=== PATIENT | female | born 1970 | race Caucasian/White ===

== ENCOUNTER 2021-02-18 13:57 | Outpatient (REF) | payer BC, SELFPAY ==
--- NOTE | ~2021-02-18 | XR_ITS ---
EXAMINATION: XR LUMBOSACRAL SPINE CLINICAL INFORMATION: Pain. Evaluate for fracture. COMPARISON: None TECHNIQUE: Three views of the lumbosacral spine. FINDINGS: Bone alignment is normal. No fracture or dislocation is seen. Disc spaces are normal. There is degenerative spondylosis at L2-L3. There is lower lumbar spine facet arthritis. XR/XR lumbar spine 2-3V IMPRESSION: No fracture or dislocation seen. Degenerative changes.
== END 2021-02-18 13:58 | disposition home or self-care (01) ==
LOC: HO.XRAY 13:57
PROVIDERS: PCP Internal Medicine Medical Oncology; Visit Provider Internal Medicine Medical Oncology
DX: R63.6 Underweight (principal); M54.5 Low back pain
CPT/HCPCS: 72100

== ENCOUNTER 2021-06-08 07:38 | Outpatient (REF) | payer BC, SELFPAY ==
[2021-06-08 10:07] LABS: MANUAL DIFF FLAG NO
[2021-06-08 10:14] LABS: Basophils Percent Auto 0.7 % (0-2); Eosinophils Absolute Auto 0.1 X10*3/uL (0.0-0.4); Eosinophils Percent Auto 4.1 % (0-4); Hematocrit 38.5 % (37-47); Hemoglobin 13.1 g/dl (12.0-16.0); Imm Gran Abs Auto 0.01 X10*3/uL (0.00-0.03); Imm Gran Pct Auto 0.4 % (0.0-0.4); Lymphocytes Absolute Auto 1.1 X10*3/uL (1.2-4.9); Lymphocytes Percent Auto 39.1 % (20-40); Mean Corpuscular Hemoglobin 32.3 pg (27.0-33.0); Mean Corpuscular Volume 94.8 fL (80-98); Mean Platelet Volume 10.4 fL (9.4-12.3); Monocytes Absolute Auto 0.3 X10*3/uL (0.1-1.2); Monocytes Percent Auto 12.5 % (2-11); Neutrophils Absolute Auto 1.2 X10*3/uL (2.0-8.3); Neutrophils Percent Auto 43.2 % (45-73); Platelet Count 251 X10*3/uL (160-400); Red Blood Count 4.06 X10*6/uL (4.20-5.50); Red Cell Distribution Width 12.1 % (11.0-16.0); White Blood Count 2.7 X10*3/uL (4.8-10.8)
[2021-06-08 11:23] LABS: Alanine Aminotransferase 10 U/L (0-31); Albumin Level 4.2 g/dL (3.5-5.0); Alkaline Phosphatase 46 U/L (39-117); Anion Gap 12 (12-20); Aspartate Amino Transferase 14 U/L (5-31); Bilirubin Total 0.8 mg/dL (0.0-1.0); Blood Urea Nitrogen 11 mg/dL (9-16); Calcium 9.4 mg/dL (8.4-10.2); Carbon Dioxide 26 mmol/L (22-29); Chloride 107 mmol/L (96-108); Cholesterol 155 mg/dL; Estimated Glomerular Filt Rate > 60; Glucose Fasting 82 mg/dL (60-99); HDL Cholesterol 54 mg/dL; LDL Cholesterol Calculated 93 mg/dl; Potassium 4.2 mmol/L (3.3-5.1); Sodium 141 mmol/L (135-145); Total Protein 6.4 g/dL (6.5-8.0); Triglycerides 40 mg/dL
== END 2021-06-08 07:39 | disposition home or self-care (01) ==
LOC: HO.10HDL 07:38
PROVIDERS: PCP Internal Medicine Medical Oncology; Visit Provider Internal Medicine Medical Oncology
DX: Z00.00 Encounter for general adult medical examination without abnormal findings (principal)
CPT/HCPCS: 36415; 80053; 80061; 85025

== ENCOUNTER 2021-08-08 15:14 | Outpatient (REF) | payer BC, SELFPAY ==
[2021-08-08 16:48] LABS: MANUAL DIFF FLAG NO
[2021-08-08 16:53] LABS: Basophils Percent Auto 0.5 % (0-2); Hematocrit 39.5 % (37-47); Hemoglobin 13.4 g/dl (12.0-16.0); Lymphocytes Absolute Auto 1.3 X10*3/uL (1.2-4.9); Lymphocytes Percent Auto 33.5 % (20-40); Mean Corpuscular HGB Conc 33.9 g/dl (31.0-35.0); Mean Corpuscular Hemoglobin 31.2 pg (27.0-33.0); Mean Corpuscular Volume 91.9 fL (80-98); Mean Platelet Volume 10.3 fL (9.4-12.3); Monocytes Absolute Auto 0.4 X10*3/uL (0.1-1.2); Monocytes Percent Auto 11.5 % (2-11); Neutrophils Percent Auto 53.5 % (45-73); Platelet Count 243 X10*3/uL (160-400); Red Cell Distribution Width 11.6 % (11.0-16.0); White Blood Count 3.8 X10*3/uL (4.8-10.8)
[2021-08-10 18:16] LABS: HPV mRNA E6/E7 rflx Not Detected (Not Detected)
== END 2021-08-08 15:15 | disposition home or self-care (01) ==
LOC: HO.LAB 15:14
PROVIDERS: Obstetrics & Gynecology; PCP Internal Medicine Medical Oncology; Visit Provider Internal Medicine Medical Oncology
DX: Z01.419 Encounter for gynecological examination (general) (routine) without abnormal findings (principal); K52.9 Noninfective gastroenteritis and colitis, unspecified; Z88.1 Allergy status to other antibiotic agents; Z88.0 Allergy status to penicillin; Z88.2 Allergy status to sulfonamides
CPT/HCPCS: 36415; 85025; 87624; 88142

== ENCOUNTER → 2022-01-12 15:33 | Outpatient (BNVA) | payer BC, SELFPAY | PROVIDERS: PCP Internal Medicine Medical Oncology; Visit Provider Nurse Practitioner | DX: Z12.11 Encounter for screening for malignant neoplasm of colon (principal) ==

== ENCOUNTER 2022-08-17 07:46 | Outpatient (REF) | payer BC, SELFPAY ==
[2022-08-17 10:48] LABS: MANUAL DIFF FLAG NO
[2022-08-17 11:00] LABS: Basophils Percent Auto 0.5 % (0-2); Eosinophils Absolute Auto 0.1 X10*3/uL (0.0-0.4); Eosinophils Percent Auto 2.9 % (0-4); Hematocrit 41.7 % (37.0-47.0); Hemoglobin 13.8 g/dl (12.0-16.0); Imm Gran Abs Auto 0.01 X10*3/uL (0.00-0.03); Imm Gran Pct Auto 0.3 % (0.0-0.4); Lymphocytes Absolute Auto 1.1 X10*3/uL (1.2-4.9); Lymphocytes Percent Auto 30.2 % (20-40); Mean Corpuscular HGB Conc 33.1 g/dl (31.0-35.0); Mean Corpuscular Hemoglobin 30.7 pg (27.0-33.0); Mean Corpuscular Volume 92.7 fL (80.0-98.0); Mean Platelet Volume 10.3 fL (9.4-12.3); Monocytes Absolute Auto 0.5 X10*3/uL (0.1-1.2); Monocytes Percent Auto 12.6 % (2-11); Neutrophils Percent Auto 53.5 % (45-73); Platelet Count 251 X10*3/uL (160-400); Red Cell Distribution Width 11.9 % (11.0-16.0); White Blood Count 3.7 X10*3/uL (4.8-10.8)
[2022-08-17 11:13] LABS: Alanine Aminotransferase 14 U/L (0-31); Albumin Level 4.4 g/dL (3.5-5.0); Alkaline Phosphatase 52 U/L (39-117); Anion Gap 14 (12-20); Aspartate Amino Transferase 17 U/L (5-31); Bilirubin Total 0.8 mg/dL (0.0-1.0); Blood Urea Nitrogen 16 mg/dL (9-16); Calcium 9.2 mg/dL (8.4-10.2); Carbon Dioxide 26 mmol/L (22-29); Chloride 104 mmol/L (96-108); Cholesterol 163 mg/dL; Estimated Glomerular Filt Rate > 60; Glucose Fasting 86 mg/dL (60-99); HDL Cholesterol 64 mg/dL; LDL Cholesterol Calculated 90 mg/dl; Sodium 140 mmol/L (135-145); Total Protein 6.9 g/dL (6.5-8.0); Triglycerides 46 mg/dL
== END 2022-08-17 07:47 | disposition home or self-care (01) ==
LOC: HO.10HDL 07:46
PROVIDERS: Visit Provider Internal Medicine Medical Oncology
DX: Z00.00 Encounter for general adult medical examination without abnormal findings (principal)
CPT/HCPCS: 36415; 80053; 80061; 85025

== ENCOUNTER → 2023-04-09 09:23 | Outpatient (BNVA) | payer BC, SELFPAY | PROVIDERS: PCP Internal Medicine Medical Oncology; Visit Provider Nurse Practitioner Family ==

== ENCOUNTER 2023-08-22 08:09 | Outpatient (REF) | payer BC, SELFPAY ==
[2023-08-22 10:17] LABS: MANUAL DIFF FLAG NO
[2023-08-22 10:26] LABS: Basophils Percent Auto 0.5 % (0-2); Eosinophils Absolute Auto 0.1 X10*3/uL (0.0-0.4); Eosinophils Percent Auto 1.9 % (0-4); Hematocrit 41.7 % (37.0-47.0); Hemoglobin 13.8 g/dl (12.0-16.0); Imm Gran Abs Auto 0.01 X10*3/uL (0.00-0.03); Imm Gran Pct Auto 0.3 % (0.0-0.4); Lymphocytes Absolute Auto 0.9 X10*3/uL (1.2-4.9); Lymphocytes Percent Auto 25.6 % (20-40); Mean Corpuscular HGB Conc 33.1 g/dl (31.0-35.0); Mean Corpuscular Hemoglobin 30.9 pg (27.0-33.0); Mean Corpuscular Volume 93.3 fL (80.0-98.0); Mean Platelet Volume 10.2 fL (9.4-12.3); Monocytes Absolute Auto 0.4 X10*3/uL (0.1-1.2); Monocytes Percent Auto 10.6 % (2-11); Neutrophils Absolute Auto 2.2 x10*3/uL (2.0-8.3); Neutrophils Percent Auto 61.1 % (45-73); Platelet Count 236 X10*3/uL (160-400); Red Blood Count 4.47 X10*6/uL (4.20-5.50); White Blood Count 3.7 X10*3/uL (4.8-10.8)
[2023-08-22 10:52] LABS: Alanine Aminotransferase 12 U/L (0-31); Albumin Level 4.1 g/dL (3.5-5.0); Alkaline Phosphatase 50 U/L (39-117); Anion Gap 10 (12-20); Aspartate Amino Transferase 17 U/L (5-31); Bilirubin Total 0.5 mg/dL (0.0-1.0); Blood Urea Nitrogen 12 mg/dL (9-16); Carbon Dioxide 27 mmol/L (22-29); Chloride 107 mmol/L (96-108); Cholesterol 156 mg/dL (<200); Estimated Glomerular Filt Rate > 60; Glucose Fasting 89 mg/dL (60-99); HDL Cholesterol 69 mg/dL (>40); LDL Cholesterol Calculated 81 mg/dL (<100); Sodium 140 mmol/L (135-145); Total Protein 6.7 g/dL (6.5-8.0); Triglycerides 32 mg/dL (<150)
[2023-08-22 11:08] LABS: Vitamin D 25-OH Total 92.9 ng/mL (>30)
== END 2023-08-22 08:10 | disposition home or self-care (01) ==
LOC: HO.10HDL 08:09
PROVIDERS: Visit Provider Internal Medicine Medical Oncology
DX: E55.9 Vitamin D deficiency, unspecified (principal); K52.9 Noninfective gastroenteritis and colitis, unspecified; R63.6 Underweight; E78.5 Hyperlipidemia, unspecified
CPT/HCPCS: 36415; 80053; 80061; 82306; 85025

== ENCOUNTER 2023-11-01 09:53 | Outpatient (AMB) | payer BC, SELFPAY ==
--- NOTE | 2023-11-01 10:10 | A.OFFVIS_ITS ---
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 Patient reports pain started early June after doing at home exercises that she was instructed by PT for her back. She has had no improvement in her pain. States pain is in her bicep area that fluctuated in intensity. Her pain is 80% of the time that will get worse with activities. No other tx. Allergies amoxicillin Allergy (Intermediate, Verified 11/01/23 10:20) rash azithromycin Allergy (Intermediate, Verified 11/01/23 10:20) rash penicillin V Allergy (Intermediate, Verified 11/01/23 10:20) Rash Penicillins [PENICILLINS] Allergy (Intermediate, Verified 11/01/23 10:20) rash Sulfa (Sulfonamide Antibiotics) [SULFA (SULFONAMIDE ANTIBIOTICS)] Allergy (Unknown, Verified 11/01/23 10:20) RASH MYCINS Adverse Reaction (Unknown, Uncoded 11/01/23 10:20) RASH Medication List - Last Reconciled 11/01/23 by Savanah Dunn PA-C albuterol sulfate 90 mcg/actuation 2 puffs inhalation Q6H PRN calcium carbonate 500 mg PO BID cholecalciferol (vitamin D3) 25 mcg PO DAILY clobetasol 0.05% grams topical BID cyclobenzaprine 5 mg PO BEDTIME PRN 30 days ibuprofen 600 mg PO Q8H PRN peg 3350-electrolytes 240-22.72-6.72 -5.84 gram (Gavilyte-C) 240 mL PO Q10M 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 She currently states she has no improvement in her pain and c/o pain in her bicep region which fluctuates in intensity. Her pain is aggravated with activities about 80% of the time. She also reports pain with overhead reaching as well as reaching her sides to pick the remote. She finds relief with Advil most of the time. She has not had any treatment in the past. REPLACED BY [facility] Medical History Asthma Colitis Herniated disc, cervical Surgical History H/O colonoscopy S/P tonsillectomy and adenoidectomy History of endometrial ablation Family History Mother Breast cancer HTN (hypertension) Stroke COPD (chronic obstructive pulmonary disease) Emphysema lung Father Diabetes Emphysema lung HTN (hypertension) Maternal Aunt Breast cancer Social History (Updated 11/01/23 @ 10:12 by SHALONDA King) Household Members: Spouse Housing: House Alcohol intake: current Patient Tobacco Use Status: Never used Tobacco Current occupational status: employed 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, right hand dominant Sexual orientation: Straight/Heterosexual Gender identity: Female Female Reproductive History Menstrual Age of Menarche: 12 Review of Systems Const All systems reviewed & are unremarkable except as noted in HPI and below Physical Exam Vital Signs: BMI result Body Mass Index 18.9 Const General: cooperative, healthy appearing, comfortable, no acute distress, well developed and alert Orientation/consciousness: patient oriented x3 HEENT Head: Yes normal to inspection, Yes normocephalic and Yes atraumatic Eyes General: appearance normal, both eyes and all related structures Resp Effort & Inspection: normal respiratory effort and able to speak in complete sentences Cardio Rate: regular rate Peripheral pulses: Peripheral pulses 2+ throughout GI Palpation (GI): Soft to palpation Skin Lesions: no lesions Rashes: no rashes Neuro General: patient oriented x3 Extrem Other: Right shoulder normal to inspection. Tenderness over the bicipital groove and along the deltoid region of the shoulder. Forward flexion to 175, external rotation to 90, internal rotation to S1. 5/5 RTC strength. Positive O'Briens and cross body abduction. NVI. Results Reviewed Results Reviewed: Xrays were obtained in the office today and personally reviewed by me of the right shoulder show mild ac joint oa Assessment & Plan Assessment & Plan (1) Biceps tendonitis on right: Code(s): M75.21 - Bicipital tendinitis, right shoulder (2) Osteoarthritis of right acromioclavicular joint: Code(s): M19.011 - Primary osteoarthritis, right shoulder Plan We discussed options which include PT, NSAIDs and injections. The patient will defer on the injection today and proceed with PT and NSAIDs. If she continues to have discomfort, she will contact us in 6-8 weeks to discuss further imaging studies such as an MRI. Orders: Orders XR shoulder RT min 2V Today M25.511 - Pain in right shoulder PT Evaluation and Treatment Today M19.011 - Primary osteoarthritis, right shoulder, M75.21 - Bicipital tendinitis, right shoulder Patient Instructions: Scribed for Savanah Dunn PA-C, by Jdaen Omalley medical office asst, on 11/01/2023 at 10:00 AM EST. I, Savanah Dunn PA-C, have personally reviewed and agree with the information entered by the scribe. Coding Level of Care Code New Pt Level 3 (02694) Diagnoses Biceps tendonitis on right M75.21 Osteoarthritis of right acromioclavicular joint M19.011
[2023-11-01 10:17] VITALS: BMI 18.9
== END 2023-11-01 10:40 | disposition home or self-care (01) ==
PROVIDERS: PCP Internal Medicine Medical Oncology; Visit Provider Physician Assistant
DX: M75.21 Bicipital tendinitis, right shoulder (principal); M19.011 Primary osteoarthritis, right shoulder
CPT/HCPCS: 99203

== ENCOUNTER 2023-11-01 12:35 | Outpatient (REF) | payer BC, SELFPAY ==
--- NOTE | ~2023-11-01 | XR_ITS ---
EXAMINATION: XR SHOULDER, RIGHT CLINICAL INFORMATION: Pain in right shoulder COMPARISON: None available. TECHNIQUE: Three views of the right shoulder. FINDINGS: The humeral head is well positioned over the intact glenoid. Glenohumeral joint space is normal: no arthritic deformity, fracture or subluxation. Acromioclavicular joint is normal. The subacromial space is normal. There are no osteophytes projecting from the undersurface of the acromioclavicular joint. No hook-shaped acromion, os acromiale or subacromial enthesophyte. No osseous findings that would predispose to a subacromial impingement disorder. No calcium deposition within rotator cuff tendons. The visualized portion of the right lung is normal. XR/XR shoulder RT min 2V IMPRESSION: Normal right shoulder.
== END 2023-11-01 12:36 | disposition home or self-care (01) ==
LOC: HO.HOSX 12:35
PROVIDERS: Visit Provider Physician Assistant
DX: M75.21 Bicipital tendinitis, right shoulder (principal); M19.011 Primary osteoarthritis, right shoulder; Z79.899 Other long term (current) drug therapy
CPT/HCPCS: 73030

== ENCOUNTER 2024-08-27 07:40 | Outpatient (REF) | payer BC, SELFPAY ==
[2024-08-27 11:10] LABS: MANUAL DIFF FLAG NO
[2024-08-27 11:21] LABS: Basophils Percent Auto 0.5 % (0-2); Eosinophils Absolute Auto 0.1 X10*3/uL (0.0-0.4); Eosinophils Percent Auto 1.6 % (0-4); Hematocrit 42.8 % (37.0-47.0); Hemoglobin 14.3 g/dl (12.0-16.0); Imm Gran Abs Auto 0.01 X10*3/uL (0.00-0.03); Imm Gran Pct Auto 0.2 % (0.0-0.4); Lymphocytes Absolute Auto 1.1 X10*3/uL (1.2-4.9); Lymphocytes Percent Auto 25.2 % (20-40); Mean Corpuscular HGB Conc 33.4 g/dl (31.0-35.0); Mean Corpuscular Hemoglobin 30.9 pg (27.0-33.0); Mean Corpuscular Volume 92.4 fL (80.0-98.0); Mean Platelet Volume 9.8 fL (9.4-12.3); Monocytes Absolute Auto 0.5 X10*3/uL (0.1-1.2); Monocytes Percent Auto 11.2 % (2-11); Neutrophils Absolute Auto 2.7 x10*3/uL (2.0-8.3); Neutrophils Percent Auto 61.3 % (45-73); Platelet Count 248 X10*3/uL (160-400); Red Blood Count 4.63 X10*6/uL (4.20-5.50); Red Cell Distribution Width 11.9 % (11.0-16.0); White Blood Count 4.4 X10*3/uL (4.8-10.8)
[2024-08-27 12:26] LABS: Alanine Aminotransferase 23 U/L (0-31); Albumin Level 4.2 g/dL (3.5-5.0); Alkaline Phosphatase 63 U/L (39-117); Anion Gap 13 (12-20); Aspartate Amino Transferase 23 U/L (5-31); Bilirubin Total 0.5 mg/dL (0.0-1.0); Blood Urea Nitrogen 14 mg/dL (9-16); Carbon Dioxide 25 mmol/L (22-29); Chloride 107 mmol/L (96-108); Cholesterol 178 mg/dL (<200); Estimated Glomerular Filt Rate > 60; Glucose Fasting 94 mg/dL (60-99); HDL Cholesterol 74 mg/dL (>40); LDL Cholesterol Calculated 95 mg/dL (<100); Sodium 141 mmol/L (135-145); Total Protein 6.9 g/dL (6.5-8.0); Triglycerides 49 mg/dL (<150)
== END 2024-08-27 07:41 | disposition home or self-care (01) ==
LOC: HO.10HDL 07:40
PROVIDERS: Visit Provider Internal Medicine Medical Oncology
DX: Z13.6 Encounter for screening for cardiovascular disorders (principal); E55.9 Vitamin D deficiency, unspecified; R63.6 Underweight
CPT/HCPCS: 36415; 80053; 80061; 85025

== ENCOUNTER 2025-09-03 07:58 | Outpatient (REF) | payer BC, SELFPAY ==
--- OUTSIDE RECORDS SUMMARY | 2024-03-19 04:10 | XMS_ITS ---
Author Organization Reuben Cat III, MD Address [address] [place] [address] [place] [address] Care Team Providers Care Supervisor Fish Processing Name Role Phone Dr. Reuben Cat III Primary Care Provider REASON FOR VISIT pt want RX Clobetasol propionate Medications Medication SIG (Take, Route, Frequency, Duration) Notes Start Date End Date Status Clobetasol Propionate 0.05 % 1 application Externally Twice a day for 30 days 02/17/2022 10/15/2024 Active Social History Sex Assigned At : Social History Observation Description Sex Assigned At Female Encounters Encounter Location Date Provider Diagnosis Reuben Cat III, MD [address] [place] [address] [place] [address] 03/19/2024 Reuben Cat Plan Of Treatment Medication Medication Name Sig Start Date Stop Date Notes Clobetasol Propionate 0.05 % 1 applicati on Externally Twice a day for 30 days 02/17/2022 10/15/2024 Next Appt Details Provider Name:Reuben Cat , 09/09/2025 09:30:00 AM, [address] [place] [address] [place], [address], Progress Notes * ANJELFloraDOB:1970 (54 yo F)Acc No.[id number]:03/19/2024 Patient: Anjelica Hampton :1970 A ge:54 Y S ex:Female Address:[address] [place] [address], [address] * Refills Refill Clobetasol Propionate Cream, 0.05 %, Externally, 60 Gram, 1 application, Twice a day, 30 days, Refills=6 * true * Date: Generated for Johnny leone/Dustin/Jamie on: 11/03/2024 08:04 AM EST
--- OUTSIDE RECORDS SUMMARY | 2024-08-28 01:51 | XMS_ITS ---
Author Organization Reuben Cat III, MD Address [address] [place] [facility] [place] [address] Care Team Providers Care Video Photographer Name Role Phone Dr. Reuben Cat III Primary Care Provider REASON FOR VISIT Update Demographics - Personal Info Social History Sex Assigned At : Social History Observation Description Sex Assigned At Female Encounters Encounter Location Date Provider Diagnosis Reuben Cat III, MD [address] [place] [address] [place] [address] 08/28/2024 Reuben Cat Plan Of Treatment Next Appt Details Provider Name:Reuben Cat , 09/09/2025 09:30:00 AM, [address] [place] [address] [place], [address], Progress Notes * Anjelica GUAMANDOB:1970 (54 yo F)Acc No.[id number]:08/28/2024 Patient: Anjelica JEAN BAPTISTE :1970 A ge:54 Y S ex:Female Address:[address] [place] [address], [address] * true * Date: Generated for Johnny leone/Fairag/eTransmitting on: 11/03/2024 08:04 AM EST
--- OUTSIDE RECORDS SUMMARY | 2024-09-08 04:30 | XMS_ITS ---
Author Organization Reuben Cat III, MD Address [address] [address] Care Team Providers Care Web Ui Developer Name Role Phone Dr. Reuben Cat III Primary Care Provider [phone] Allergies Allergen (clinical drug ingredient) Drug/Non Drug [...] Problem Status W/U Status Risk Notes Problem 254260844 Lumbar radiculopathy (M54.16) Active confirmed Her back pain has been minimal lately. Vital Signs Temperature 97.9 degrees Fahrenheit 09/08/20 24 Blood pressure systolic 128 mm Hg 09/08/20 24 Blood pressure diastolic 69 mm Hg 024 Heart Rate 75 /min 09/08/2024 Height 67.5 in 09/08/2024 Weight 120 lbs 09/08/2024 BMI 18.52 kg/m2 09/08/2024 Encounters Encounter Location Date Provider Diagnosis Reuben Cat III, MD [address] [place] [address] [place] [address] 09/08/2024 Reuben Cat Immunization not carried out [...] Inhalation every 4 hrs prn wheezing 06/18/2020 Pending Test Test Name Order Date PROFILE, FASTING (COMPREHENSIVE METABOLI C) 09/08/2024 CBC WITH AUTO DIFF 09/08/2024 Lipid Panel 09/08/2024 Next Appt Details Follow Up: 1 Year, In a year or sooner if any concerns arise, Reason: OV, Annual Exam, Routine check-up Provider Name:Reuben Cat , 09/09/2025 09:30:00 AM, [address] [place] [address], [address], Progress Notes * Anjelica GUAMANDOB:1970 (54 yo F)Acc No.[id number]:09/08/2024 Progress Notes Patient: Anjelica JEAN BAPTISTE Provider: Jessy Cat MD :1970 A ge:54 Y S ex:Female Date:09/08/2024 Address:[address] [place], [place] [id number] Subjective: * Chief Complaints: * A nnual exam * HPI: D epression Screening: PHQ-9 L ittle interest or pleasure in doing things?Not at all F eeling down, depressed, or hopeless N ot at all T rouble falling or staying asleep, or sleeping too much S ever F eeling tired or having little energy [...] fracture right humerus, childhood fracture toe, childhood [id number] repair laceration right wrist, Dr. Bojorquez, orthopedist [...] (0 point) P oints 1 I nterpretation Hermelinda Frankel iscellaneous: D omestic violence: no. Living with: spouse. D rug/Alcohol: A MARIS-C (Standard) D id you have a drink containing alcohol in the past year? N o P oints 0 I nterpretation N billie S he was born in [facility]. She has 2 children and was remarried to [place] in February 2016.. 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 She does not smoke or drink and has not traveled outside of the country since 2008 when she was in [place]. Not mentioned in the transcript. * Medications: [...] 97.9, [id number]-k.[id number]. * P ast Orders: Lab:[facility] * Collection Date 08/27/2024 08/22/2023 08/17/2022 Collection [...] Yes * Procedure Codes: 8 1002 URINE-NO [id number] FLU IMM NO ORD/ADMIN DOC FEDERICO * [...] Jessy Cat MD Date: 11/08/2023 Generated for Johnny leone/Dustin/eTransmitting on: 11/03/2024 08:04 AM EST History and Physical Notes * HPI [...] days?: No Have you travelled internationally in e last 10 days?: No Have you been [...]
--- OUTSIDE RECORDS SUMMARY | 2025-09-03 08:04 | XMS_ITS | Patient Health Record ---
Author Organization Reuben Cat III, MD Address [address] [place] [address] [address] [place] [address] Care Team Providers Care Tool Setter Name Role Phone Dr. Reuben Cat III Primary Care Provider Allergies Allergen (clinical drug ingredient) Drug/Non Drug [...] 1.3 BLD Positive Negative - Menstrating Yes Reason For Referral No Information Medications Medication SIG (Take, Route, Frequency, Duration) Notes Start Date End Date Status Acidophilus Active Vitamin D Active Calcium Active Beet Root Active Clobetasol Propionate 0.05 % 1 application Externally Twice a day 02/17/2022 Active ProAir HFA 108 (90 Base) MCG/ACT 2 puffs as needed Inhalation every 4 hrs prn wheezing 06/18/2020 Active Immunizations Vaccine Route Administration Date Status Comme nts Tetanus and Diphtheria Toxoi ds Adsorbed Unknown 05/17/2004 Administered Decline: Influenza Unknown 09/03/2023 Others Social History Tobacco Use: Social History Observation [...] Problem Status W/U Status Risk Notes Problem 010246690 Asthma (J45.909) Active confirmed She has had very little trouble with asthma the summer and is not wheezing at this time. No change her therapy as needed. Problem 386532191 Underweight (R63.6) Active confirmed Her body mass index is 18. Her weight is stable and her nutritional status is good. She seems healthy and well. Problem 276040572 Lumbar radiculopathy (M54.16) Active confirmed Her back pain has been minimal lately. 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 Her vitamin D level was 92. She admitted to taking 3000 mg of vitamin D daily. Her calcium is normal. I have reduced her vitamin D intake to 2000 units. Problem Intervertebral disc disorder (33733684) Unspecified thoracic, thoracolumbar and lumbosacral intervertebral disc disorder (M51.9) Active confirmed She continues to have mild back pain from last month. 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 Yet, and we are in pollen season. We reviewed her strategies for controlling allergies to environmental stimuli. 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 Problem 347922017 Acute right-sided low back pain with right-sided sciatica (M54.41) Active confirmed Her back pain has resolved. She has intermittent twinges and is conscientious about avoiding heavy lifting and undue exercise. Problem 253519484 Abnormal mammogram of left breast (R92.8) Active confirmed She is going to try to find the details of her family's breast cancer cases particularly the age of onset and the location of the pathology reports. I will order an MRI of the breast and we will discuss these results. If she qualifies for genetic testing it will be ordered. Vital Signs Heart Rate 75 /min 09/08/2024 Temperature 97.9 degrees Fahrenheit 09/08/2024 Blood pressure diastolic 69 mm Hg 09/08/2024 Height 67.5 in 09/08/2024 Blood pressure systolic 128 mm Hg 09/08/2024 Weight 120 lbs 09/08/2024 BMI 18.52 kg/m2 09/08/2024 Encounters Encounter Location Date Provider Diagnosis Reuben Cat III, MD [address] [place] [address] [place] [address] 09/08/2024 Reuben Cat Immunization not carried out because of patient refusal Z28.21 ; Lumbar radiculopathy M54.16 ; Underweight R63.6 ; Asthma J45.909 and Vitamin D deficiency, unspecified E55.9 Assessments Encounter Date Diagnosis (ICD Code) Assessment Notes Treat ment Notes Treatment Clinical Notes 09/08/2024 Lumbar radiculopathy (ICD-10 - M54.16) Her back pain has been minimal lately. 09/08/2024 Immunization not carried out because of patient refusal (ICD-10 - Z28.21) She declined an annual influenza vaccine. 09/08/2024 Underweight (ICD-10 - R63.6) Her body [...] intake to 2000 units. Plan Of Treatment Pending Test Test Name Order Date PROFILE, FASTING (COMPREHENSIVE METABOLI C) 07/16/2023 PROFILE, FASTING (COMPREHENSIVE METABOLI C) 12/17/2019 PROFILE, FASTING (COMPREHENSIVE METABOLI C) 09/08/2024 PROFILE, FASTING (COMPREHENSIVE METABOLI C) 04/03/2022 PROFILE, FASTING (COMPREHENSIVE METABOLI C) 09/03/2023 PROFILE, FASTING (COMPREHENSIVE METABOLI C) 06/18/2020 LIPID PANEL 06/18/2020 LIPID PANEL 07/16/2023 LIPID PANEL 12/17/2019 LIPID PANEL 04/03/2022 CBC w DIFF 04/03/2022 CBC w DIFF 06/18/2020 CBC w DIFF 06/21/2021 CBC w DIFF 07/16/2023 CBC w DIFF 12/17/2019 MRI BREAST BILATERAL 06/14/2017 MRI LUMBAR SPINE NO CONTRAST 03/14/2023 MAMMOGRAM DIGITAL BILATERAL DIAGNO 05/14 MAMMOGRAM DIGITAL BILATERAL SCREEN 04/07 MAMMOGRAM DIGITAL UNILATERAL JON LT 04/21 VITAMIN D 25-OH TOTAL 09/03/2023 VITAMIN D 25-OH TOTAL 07/16/2023 CBC WITH AUTO DIFF 09/03/2023 CBC WITH AUTO DIFF 09/08/2024 Lipid Panel 09/08/2024 Lipid Panel 09/03/2023 Next Appt Details Provider Name:Reuben House Stephania , 09/09/2025 09:30:00 AM, [address] [place] [address] [place], [place], [address], Insurance Providers Payer Name Payer Address Payer Phone Subscriber Number Group Number Insured Name Patient Relationship to Insured Coverage Start Date Coverage End Date [facility] [address] [place], [place] [id number] Anjelica Guaman Self - patient is the insured Medical (General) History Medical History History ICD Code laceration right wrist last mammogram 03/05/2014 asthma onset age 35 colitis, [place], [place] [facility] [place] tetanus 06/2014 high risk HPV Degenerative disc disease lumbar spine Lumbar radiculopathy Not mentioned in the transcript Surgical History Surgery Date(Month/Year) T&A childhood fracture right humerus, childhood fracture toe, childhood [id number] repair laceration right wrist, Dr. Bojorquez , orthopedist 06/2014 colonoscopy 2007 No history Hospitalization History Reason Date(Month/Year) No history
[2025-09-03 08:21] LABS: MANUAL DIFF FLAG NO
[2025-09-03 08:25] LABS: Hematocrit 42.1 % (37.0-47.0); Hemoglobin 14.1 g/dl (12.0-16.0); Imm Gran Abs Auto 0.01 X10*3/uL (0.00-0.03); Imm Gran Pct Auto 0.3 % (0.0-0.4); Lymphocytes Absolute Auto 1.2 X10*3/uL (1.2-4.9); Mean Corpuscular HGB Conc 33.5 g/dl (31.0-35.0); Mean Corpuscular Hemoglobin 31.5 pg (27.0-33.0); Mean Corpuscular Volume 94.0 fL (80.0-98.0); NRBC Abs Auto 0.000 X10*3/uL (0.0-0.012); NRBC Pct Auto 0.0 /100WBC (0.0-0.2); Platelet Count 226 X10*3/uL (160-400); Red Blood Count 4.48 X10*6/uL (4.20-5.50); White Blood Count 3.2 X10*3/uL (4.8-10.8)
[2025-09-03 12:15] LABS: Alanine Aminotransferase 18 U/L (0-31); Albumin Level 4.5 g/dL (3.5-5.0); Alkaline Phosphatase 60 U/L (39-117); Anion Gap 10 (12-20); Aspartate Amino Transferase 22 U/L (5-31); Blood Urea Nitrogen 13 mg/dL (9-16); Calcium 8.6 mg/dL (8.4-10.2); Carbon Dioxide 29 mmol/L (22-29); Chloride 107 mmol/L (96-108); Cholesterol 172 mg/dL (<200); Estimated Glomerular Filt Rate > 60; HDL Cholesterol 70 mg/dL (>40); Potassium 3.7 mmol/L (3.3-5.1); Sodium 142 mmol/L (135-145); Total Protein 6.9 g/dL (6.5-8.0); Triglycerides 44 mg/dL (<150)
== END 2025-09-03 07:59 | disposition home or self-care (01) ==
LOC: HO.10HDL 07:58
PROVIDERS: Visit Provider Internal Medicine Medical Oncology
DX: Z00.00 Encounter for general adult medical examination without abnormal findings (principal); Z13.6 Encounter for screening for cardiovascular disorders
CPT/HCPCS: 36415; 80053; 80061; 85025

== ENCOUNTER 2025-10-13 17:20 | Outpatient (REF) | payer BC, SELFPAY ==
--- OUTSIDE RECORDS SUMMARY | 2024-08-28 01:51 | XMS_ITS ---
Author Organization Reuben Cat III, MD Address [address] [place] [address] Care Team Providers Care Meals On Wheels Driver Name Role Phone Dr. Reuben Cat III Primary Care Provider [phone] REASON FOR VISIT Update Demographics - Personal Info Social History Sex Assigned At : Social History Observation Description Sex Assigned At Female Encounters Encounter Location Date Provider Diagnosis Reuben Cat III, MD [address] [place] [address] [place] [address] 08/28/2024 Reuben Cat Plan Of Treatment Next Appt Details Provider Name:Reuben Cat , 10/19/2025 02:45:00 PM, [address] [place] [address] [place], [address], Provider Name:Reuben Cat , 09/10/2026 09:30:00 AM, [address] [place] [address] [place], [address], Progress Notes * ANJELAnjelicaDOB:1970 (54 yo F)Acc No.[id number]:08/28/2024 Patient: Anjelica JEAN BAPTISTE :1970 A ge:54 Y S ex:Female Address:[address] [place] [address], [address] * true * Date: Generated for Printi ng/Faxing/eTransmitting on: 1 12/14/2024 05:22 PM EST
--- OUTSIDE RECORDS SUMMARY | 2024-09-08 04:30 | XMS_ITS ---
Author Organization Reuben Cat III, MD Address [address] [place] [address] Care Team Providers Care Youth Coordinator Name Role Phone Dr. Reuben Cat III Primary Care Provider [phone] Allergies Allergen (clinical drug ingredient) Drug/Non Drug Allergy documented on EMR Reaction Allergy Type Onset Date Status Penicillin Unknown Drug Allergy Active Cat dander Cat Dander Unknown Allergy Active vancomycin Vancomycin HCl Unknown Drug Allergy A ctive Seasonale Unknown Drug Allergy Active erythromycin Erythromycin Unknown Drug Allergy A ctive amoxicillin Amoxicillin Unknown Drug Allergy Act [place] sulfacetamide Sulfacetamide Unknown Drug Allergy Active Results Component Value Reference Range Notes URINE DIP STICK Reviewed date:09/08/2024 09:56:16 AM Interpretation: Performing Lab: Notes/Report: SG 1.030 1.005 - 1.025 pH 5.0 5.0 - 9.0 SARAH Negative Negative - NIT Negative Negative - PRO 15 Negative - Trace GLU Negative Negative - KET 5 Negative - UBG 0.2 0.1 - 1.8 SHARAD 1 0.2 - 1.3 BLD Positive Negative - Menstrating Yes REASON FOR VISIT Annual exam Medications Medication SIG (Take, Route, Frequency, Duration) Notes Start Date End Date Status Acidophilus Active Vitamin D Active Calcium Active Beet Root Active Clobetasol Propionate 0.05 % 1 application Externally Twice a day 02/17/2022 Active ProAir HFA 108 (90 Base) MCG/ACT 2 puffs as needed Inhalation every 4 hrs prn wheezing 06/18/2020 Active Social History Tobacco Use: Social History Observation Description Date Details (start date - stop date) Never Smoker NA - NA Sex Assigned At : Social History Observation Description Sex Assigned At Female Tobacco Use/Smoking Question Answer Notes Patient is a nonsmoker Additional Findings: Tobacco Non-User Aggressive non-smoker Alcohol Screen Question Answer Notes Did you have a drink contain ing alcohol in the past year? Yes How often did you have a dri nk containing alcohol in the past year? Monthly or less (1 point) How many drinks did you have on a typical day when you were drinking in the past year? 1 or 2 drinks (0 point) How often did you have 6 or more drinks on one occasion in the past year? Never (0 point) Points 1 Interpretation Negative Tobacco Control (Standard) Question Answer Notes Tobacco use: Nonsmoker Additional Findings: Tobacco non-user Aggressive nonsmoker AUDIT-C (Standard) Question Answer Notes Did you have a drink containing alcohol in the p ast year? No Points 0 Interpretation Negative Problems Problem Type SNOMED Code ICD Code Onset Dates Problem Status W/U Status Risk Notes Problem [id number] Lumbar radiculopathy (M54.16) Active confirmed Her back pain has been minimal lately. Vital Signs Temperature 97.9 degrees Fahrenheit 09/08/20 24 Blood pressure systolic 128 mm Hg 09/08/20 24 Blood pressure diastolic 69 mm Hg 024 Heart Rate 75 /min 09/08/2024 Height 67.5 in 09/08/2024 Weight 120 lbs 09/08/2024 BMI 18.52 kg/m2 09/08/2024 Encounters Encounter Location Date Provider Diagnosis Reuben Cat III, MD [address] [place] [address] [place] [address] 09/08/2024 Reuben Cat Immunization not carried out because of patient refusal Z28.21 ; Lumbar radiculopathy M54.16 ; Underweight R63.6 ; Asthma J45.909 and Vitamin D deficiency, unspecified E55.9 Assessments Encounter Date Diagnosis (ICD Code) Assessment Notes Treat ment Notes Treatment Clinical Notes 09/08/2024 Immunization not carried out because of patient refusal (ICD-10 - Z28.21) She declined an annual influenza vaccine. 09/08/2024 Lumbar radiculopathy (ICD-10 - M54.16) Her back pain has been minimal lately. 09/08/2024 Underweight (ICD-10 - R63.6) Her body mass index is 18. Her weight is stable and her nutritional status is good. She seems healthy and well. 09/08/2024 Asthma (ICD-10 - J45.909) She has had very little trouble with asthma the summer and is not wheezing at this time. No change her therapy as needed. 09/08/2024 Vitamin D deficiency, unspecified (ICD-10 - E55.9) She has continued on vitamin D. Her vitamin D level was 92. She admitted to taking 3000 mg of vitamin D daily. Her calcium is normal. I have reduced her vitamin D intake to 2000 units. Plan Of Treatment Medication Medication Name Sig Start Date Stop Date Notes Acidophilus Vitamin D Calcium Beet Root Clobetasol Propionate 0.05 % 1 applicati on Externally Twice a day 02/17/2022 ProAir HFA 108 (90 Base) MCG/ACT 2 puffs as needed Inhalation every 4 hrs prn wheezing 06/18/2020 Next Appt Details Follow Up: 1 Year, In a year or sooner if any concerns arise, Reason: OV, Annual Exam, Routine check-up Provider Name:Reuben Cat , 10/19/2025 02:45:00 PM, [address] [place] [address] [address], [place], [address], Provider Name:Reuben Cat , 09/10/2026 09:30:00 AM, [address] [place] [address] [address], [place], [address], Progress Notes * Anjelica GUAMANDOB:1970 (54 yo F)Acc No.[id number]:09/08/2024 Progress Notes Patient: Anjelica JEAN BAPTISTE Provider: Jessy Cat MD :1970 A ge:54 Y S ex:Female Date:09/08/2024 Address:[address] [place], [place] [id number] Subjective: * Chief Complaints: * A nnual exam * HPI: D epression Screening: PHQ-9 L ittle interest or pleasure in doing things?Not at all F eeling down, depressed, or hopeless N ot at all T rouble falling or staying asleep, or sleeping too much S ever days F eeling tired or having little energy N ot at all P oor appetite or overeating N ot at all F eeling bad about yourself or that you are a failure, or have let yourself or your family down N ot at all T rouble concentrating on things, such as reading the newspaper or watching television N ot at all M oving or speaking so slowly that other people could have noticed; or the opposite, being so fidgety or restless that you have been moving around a lot more than usual N ot at all T houghts that you would be better off or of hurting yourself in some way N ot at all T otal Score 1 I nterpretation M inimal Depression C OVID-19 Screening: Questions H ave you experienced fever, chills, cough, sore throat, shortness of breath, difficulty breathing, muscle aches, loss of taste or smell? N o H ave you been exposed to the virus within the last 10 days? N o H ave you travelled internationally in the last 10 days? N o H ave you been exposed to COVID-19 in the past? Y es S JUANY Questions: SDOH Questions I n the past year have you been worried about losing your housing? N o I n the past year have you or any family members you live with been unable to get any of the following when it was really needed? Check all that apply: N one * : The patient, a 54-year-old female, presented to the clinic for a routine check- up. She reported no specific complaints or symptoms. She mentioned that she has been through a lot this year, including the of her mother in March. The patient's vitals were checked and found to be normal. She reported no infections in the past year. She also mentioned that she has been eating a lot of peanut butter this year. Blood Sugar Level is Normal as per the transcript. Pain Scale is Not mentioned in the transcript. * ROS: G eneral/Constitutional: pain C hronic low back pain, otherwise only normal aches and pains. C hills d enies. F atigue a dmits. F ever d enies. E NT: Decreased hearing d enies. R espiratory: Cough d enies. C ardiovascular: Chest pain with exertion d enies. D yspnea on exertion?denies. S hortness of breath d enies. G astrointestinal: Constipation o ccasional. D ecreased appetite d enies. D iarrhea d enies. H eartburn d enies. N ausea d enies. R ectal bleeding d enies. V omiting d enies. H ematology: bruising d enies. p etechiae d enies. S wollen glands n one have been noted. G enitourinary: Frequent urination d enies. M usculoskeletal: Muscle aches d enies. P ainful joints d enies. S ciatica d enies. W eakness d enies. S kin: Itching d enies. R jade d enies. S kin lesion(s)?denies. N eurologic: Difficulty speaking d enies. D izziness d enies.?Headache d enies. L ow back pain d enies. P sychiatric: Depressed mood d enies. * Medical History: * Surgical History: T &A childhood fracture right humerus, childhood fracture toe, childhood [id number] repair laceration right wrist, Dr. Bojorquez, orthopedist 06/2014colonoscopy 2007No history * Hospitalization/Major Diagno stic Procedure: N o history * Family History: F ather: alive, emphysema, Alcoholism, glaucoma. pace maker, diagnosed with HTN, DM. M other: 71 yrs, glaucoma, breast cancer, arthritis. Passed due to a perforated intestine., diagnosed with Cancer. 1 brother(s) . 1 son(s) , 1 daughter(s) - healthy. . Her mother is 71 years old and has a history of breast cancer at 58, tobacco dependence and non-genetic glaucoma. Her father is 74 and has a history of genetic glaucoma, hypertension, diabetes, emphysema and alcoholism in durable recovery. Father recently Dx with stage 3 kidney disease. She has a cousin and a maternal aunt with a history of breast cancer. Her father's sister may have a history of breast cancer. There is no family history of cancer of the uterus prostate or colon. She has one brother Diaz about home she knows nothing and no sisters. Her children are healthy and well. She is not aware of any family history of addiction and substance abuse other than her father's alcoholism which is in recovery. She is not aware of any family history of other addictions or mental illness. The patient's mother was a breast cancer survivor. the patient's oldest sister and a cousin (daughter of the patient's mother's twin) also had breast cancer. * Social History: T obacco Use: T obacco Use/Smoking P atient is a n onsmoker A dditional Findings: Tobacco Non-User A ggressive non-smoker Tobacco Control (Standard) T obacco use: N onsmoker A dditional Findings: Tobacco non-user A ggressive nonsmoker D rugs/Alcohol: D rugs H ave you used drugs other than those for medical reasons in the past 12 months? N o Alcohol Screen D id you have a drink containing alcohol in the past year? Y es H ow often did you have a drink containing alcohol in the past year? M onthly or less (1 point) H ow many drinks did you have on a typical day when you were drinking in the past year? 1 or 2 drinks (0 point) H ow often did you have 6 or more drinks on one occasion in the past year? N ever (0 point) P oints 1 I nterpretation Hemrelinda Frankel iscellaneous: D omestic violence: no. Living with: spouse. D rug/Alcohol: A MARIS-C (Standard) D id you have a drink containing alcohol in the past year? N o P oints 0 I nterpretation N billie S he was born in [facility]. She has 2 children and was remarried to Pinckney in February 2016.. 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 She does not smoke or drink and has not traveled outside of the country since 2008 when she was in [place]. Not mentioned in the transcript. * Medications: T akingBeet Root Acidophilus Calcium Vitamin D ProAir HFA 108 (90 Base) MCG/ACT Aerosol Solution 2 puffs as needed Inhalation every 4 hrs prn wheezing Clobetasol Propionate 0.05 % Cream 1 application Externally Twice a day , stop date 10/15/2024Medication List reviewed and reconciled with the patientTaking Beet Root Taking Acidophilus Taking Calcium Taking Vitamin D Taking ProAir HFA 108 (90 Base) MCG/ACT Aerosol Solution 2 puffs as needed Inhalation every 4 hrs prn wheezing Taking Clobetasol Propionate 0.05 % Cream 1 application Externally Twice a day , stop date 10/15/2024Medication List reviewed and reconciled with the patient * Allergies: A moxicillinVancomycin HClErythromycinSulfacetamideSeasonalePenicillinCat Danderno[Allergies Verified] Objective: * Vitals: H t: 67.5, Wt: 120, BMI:18.52, BP: 128/69, HR: 75, Temp: 97.9, Wt-k.43. * P ast Orders: Lab:[facility] * Collection Date 08/27/2024 08/22/2023 08/17/2022 Collection Time 07:44 AM 08:15 AM 07:49 AM Order Date 08/27/2024 08/22/2023 08/17/2022 Sodium 141 (Ref Range: 135-145 mmol/L) 140 (Ref Range: 135-145 mmol/L) 140 (Ref Range: 135-145 mmol/L) Bilirubin Total 0.5 (Ref Range: 0.0-1.0 mg/dL) 0.5 (Ref Range: 0.0-1.0 mg/dL) 0.8 (Ref Range: 0.0-1.0 mg/dL) Aspartate Amino Transferase 23 (Ref Range: 5-31 U/L) 17 (Ref Range: 5-31 U/L) 17 (Ref Range: 5-31 U/L) Alanine Aminotransferase 23 (Ref Range: 0-31 U/L) 12 (Ref Range: 0-31 U/L) 14 (Ref Range: 0-31 U/L) Total Protein 6.9 (Ref Range: 6.5-8.0 g/dL) 6.7 (Ref Range: 6.5-8.0 g/dL) 6.9 (Ref Range: 6.5-8.0 g/dL) Albumin Level 4.2 (Ref Range: 3.5-5.0 g/dL) 4.1 (Ref Range: 3.5-5.0 g/dL) 4.4 (Ref Range: 3.5-5.0 g/dL) Alkaline Phosphatase 63 (Ref Range: 39-117 U/L) 50 (Ref Range: 39-117 U/L) 52 (Ref Range: 39-117 U/L) Potassium 4.0 (Ref Range: 3.3-5.1 mmol/L) 4.0 (Ref Range: 3.3-5.1 mmol/L) 4.0 (Ref Range: 3.3-5.1 mmol/L) Chloride 107 (Ref Range: 96-108 mmol/L) 107 (Ref Range: 96-108 mmol/L) 104 (Ref Range: 96-108 mmol/L) Carbon Dioxide 25 (Ref Range: 22-29 mmol/L) 27 (Ref Range: 22-29 mmol/L) 26 (Ref Range: 22-29 mmol/L) Anion Gap 13 (Ref Range: 12-20) 10 L (Ref Range: 12-20) 14 (Ref Range: 12-20) Blood Urea Nitrogen 14 (Ref Range: 9-16 mg/dL) 12 (Ref Range: 9-16 mg/dL) 16 (Ref Range: 9-16 mg/dL) Creatinine 0.76 (Ref Range: 0.5-1.4 mg/dL) 0.75 (Ref Range: 0.5-1.4 mg/dL) 0.76 (Ref Range: 0.5-1.4 mg/dL) Estimated Glomerular Filt Rate > 60 > 60 > 60 Glucose Fasting 94 (Ref Range: 60-99 mg/dL) 89 (Ref Range: 60-99 mg/dL) 86 (Ref Range: 60-99 mg/dL) Calcium 9.0 (Ref Range: 8.4-10.2 mg/dL) 9.0 (Ref Range: 8.4-10.2 mg/dL) 9.2 (Ref Range: 8.4-10.2 mg/dL) * Lab:Lipid Panel * Collection Date 08/27/2024 08/22/2023 08/17/2022 Collection Time 07:44 AM 08:15 AM 07:49 AM Order Date 08/27/2024 08/22/2023 08/17/2022 Triglycerides 49 (Ref Range: <150 mg/dL) 32 (Ref Range: <150 mg/dL) 46 (Ref Range: mg/dL) Cholesterol 178 (Ref Range: <200 mg/dL) 156 (Ref Range: <200 mg/dL) 163 (Ref Range: mg/dL) LDL Cholesterol Calculated 95 (Ref Range: <100 mg/dL) 81 (Ref Range: <100 mg/dL) 90 (Ref Range: mg/dl) HDL Cholesterol 74 (Ref Range: >40 mg/dL) 69 (Ref Range: >40 mg/dL) 64 (Ref Range: mg/dL) * Lab:Complete Blood Count Aut o Diff * Collection Date 08/27/2024 08/22/2023 08/17/2022 Collection Time 07:44 AM 08:15 AM 07:49 AM Order Date 08/27/2024 08/22/2023 08/17/2022 White Blood Count 4.4 L (Ref Range: 4.8-10.8 X10*3/uL) 3.7 L (Ref Range: 4.8-10.8 X10*3/uL) 3.7 L (Ref Range: 4.8-10.8 X10*3/uL) Red Blood Count 4.63 (Ref Range: 4.20-5.50 X10*6/uL) 4.47 (Ref Range: 4.20-5.50 X10*6/uL) 4.50 (Ref Range: 4.20-5.50 X10*6/uL) Hemoglobin 14.3 (Ref Range: 12.0-16.0 g/dl) 13.8 (Ref Range: 12.0-16.0 g/dl) 13.8 (Ref Range: 12.0-16.0 g/dl) Hematocrit 42.8 (Ref Range: 37.0-47.0 %) 41.7 (Ref Range: 37.0-47.0 %) 41.7 (Ref Range: 37.0-47.0 %) Mean Corpuscular Volume 92.4 (Ref Range: 80.0-98.0 fL) 93.3 (Ref Range: 80.0-98.0 fL) 92.7 (Ref Range: 80.0-98.0 fL) Mean Corpuscular Hemoglobin 30.9 (Ref Range: 27.0-33.0 pg) 30.9 (Ref Range: 27.0-33.0 pg) 30.7 (Ref Range: 27.0-33.0 pg) Mean Corpuscular HGB Conc 33.4 (Ref Range: 31.0-35.0 g/dl) 33.1 (Ref Range: 31.0-35.0 g/dl) 33.1 (Ref Range: 31.0-35.0 g/dl) Red Cell Distribution Width 11.9 (Ref Range: 11.0-16.0 %) 12.0 (Ref Range: 11.0-16.0 %) 11.9 (Ref Range: 11.0-16.0 %) Platelet Count 248 (Ref Range: 160-400 X10*3/uL) 236 (Ref Range: 160-400 X10*3/uL) 251 (Ref Range: 160-400 X10*3/uL) Mean Platelet Volume 9.8 (Ref Range: 9.4-12.3 fL) 10.2 (Ref Range: 9.4-12.3 fL) 10.3 (Ref Range: 9.4-12.3 fL) Neutrophils Percent Auto 61.3 (Ref Range: 45-73 %) 61.1 (Ref Range: 45-73 %) 53.5 (Ref Range: 45-73 %) Imm Gran Pct Auto 0.2 (Ref Range: 0.0-0.4 %) 0.3 (Ref Range: 0.0-0.4 %) 0.3 (Ref Range: 0.0-0.4 %) Lymphocytes Percent Auto 25.2 (Ref Range: 20-40 %) 25.6 (Ref Range: 20-40 %) 30.2 (Ref Range: 20-40 %) Monocytes Percent Auto 11.2 H (Ref Range: 2-11 %) 10.6 (Ref Range: 2-11 %) 12.6 H (Ref Range: 2-11 %) Eosinophils Percent Auto 1.6 (Ref Range: 0-4 %) 1.9 (Ref Range: 0-4 %) 2.9 (Ref Range: 0-4 %) Basophils Percent Auto 0.5 (Ref Range: 0-2 %) 0.5 (Ref Range: 0-2 %) 0.5 (Ref Range: 0-2 %) NRBC Pct Auto 0.0 (Ref Range: 0.0-0.2 /100WBC) 0.0 (Ref Range: 0.0-0.2 /100WBC) 0.0 (Ref Range: 0.0-0.2 /100WBC) Neutrophils Absolute Auto 2.7 (Ref Range: 2.0-8.3 x10*3/uL) 2.2 (Ref Range: 2.0-8.3 x10*3/uL) 2.0 (Ref Range: 2.0-8.3 x10*3/uL) Imm Gran Abs Auto 0.01 (Ref Range: 0.00-0.03 X10*3/uL) 0.01 (Ref Range: 0.00-0.03 X10*3/uL) 0.01 (Ref Range: 0.00-0.03 X10*3/uL) Lymphocytes Absolute Auto 1.1 L (Ref Range: 1.2-4.9 X10*3/uL) 0.9 L (Ref Range: 1.2-4.9 X10*3/uL) 1.1 L (Ref Range: 1.2-4.9 X10*3/uL) Monocytes Absolute Auto 0.5 (Ref Range: 0.1-1.2 X10*3/uL) 0.4 (Ref Range: 0.1-1.2 X10*3/uL) 0.5 (Ref Range: 0.1-1.2 X10*3/uL) Eosinophils Absolute Auto 0.1 (Ref Range: 0.0-0.4 X10*3/uL) 0.1 (Ref Range: 0.0-0.4 X10*3/uL) 0.1 (Ref Range: 0.0-0.4 X10*3/uL) Basophils Absolute Auto 0.0 (Ref Range: 0.0-0.2 X10*3/uL) 0.0 (Ref Range: 0.0-0.2 X10*3/uL) 0.0 (Ref Range: 0.0-0.2 X10*3/uL) NRBC Abs Auto 0.000 (Ref Range: 0.0-0.012 X10*3/uL) 0.000 (Ref Range: 0.0-0.012 X10*3/uL) 0.000 (Ref Range: 0.0-0.012 X10*3/uL) * Lab:URINE DIP STICK * Collection Date 09/08/2024 09/03/2023 06/21/2021 Order Date 09/08/2024 09/03/2023 06/21/2021 SG 1.030 (Ref Range: 1.005 - 1.025) 1.025 (Ref Range: 1.005 - 1.025) 1.025 pH 5.0 (Ref Range: 5.0 - 9.0) 5.0 (Ref Range: 5.0 - 9.0) 5 SARAH Negative (Ref Range: Negative -) Negative (Ref Range: Negative -) neg NIT Negative (Ref Range: Negative -) Negative (Ref Range: Negative -) neg PRO 15 (Ref Range: Negative - Trace) 15 (Ref Range: Negative - Trace) trace GLU Negative (Ref Range: Negative -) Negative (Ref Range: Negative -) normal KET 5 (Ref Range: Negative -) Negative (Ref Range: Negative -) neg UBG 0.2 (Ref Range: 0.1 - 1.8) 0.2 (Ref Range: 0.1 - 1.8) normal SHARAD 1 (Ref Range: 0.2 - 1.3) Negative (Ref Range: 0.2 - 1.3) neg BLD Positive (Ref Range: Negative -) Negative (Ref Range: Negative -) neg Menstrating Yes no no * Examination: G eneral Examination: GENERAL APPEARANCE: p leasant, well nourished, well developed, in no acute distress, calm and relaxed, underweight, woman. HEAD: a traumatic, normocephalic. EYES: e darci, perrla, anicteric, conjugate. EARS: n ormal. NOSE: s eptum intact. ORAL CAVITY: n ormal, unremarkable. NECK/THYROID: n o jugular venous distention, no carotid bruit, thyroid normal. LYMPH NODES: n o enlarged lymph nodes,spleen normal. SKIN: n o suspicious lesions, anicteric. HEART: n o clicks, gallops, murmurs, or rubs, regular rhythm, S1, S2 normal, no s3, or vascular bruits. LUNGS: c lear to auscultation . BREASTS: n o masses palpable bilaterally, no discharge, no dimpling, nontender, symmetrical. ABDOMEN: b owel sounds normal, no ascites, no organomegaly, no mass. RECTAL EXAM: n ot examined. MUSCULOSKELETAL: e xtremities unremarkable, no clubbing, cyanosis or edema. PERIPHERAL PULSES: n ormal. NEUROLOGIC: a lert and oriented, cranial nerves 2-12 grossly intact, deep tendon reflexes 2+ symmetrical, motor strength normal upper and lower extremities, sensory exam intact. PSYCH: a lert, oriented, thought process logical, goal directed, speech clear, mood/affect full range, judgement and insight good, good eye contact, cognitive function intact. - : N ot mentioned in the transcript. Assessment: * Assessment: 1. L umbar radiculopathy - M54.16 (Primary) N otes :Her back pain has been minimal lately. 2 . I mmunization not carried out because of patient refusal - Z28.21 ? N otes :She declined an annual influenza vaccine. 3 . U nderweight - R63.6 N otes :Her body mass index is 18. Her weight is stable and her nutritional status is good. She seems healthy and well. 4 . A sthma - J45.909 N otes :She has had very little trouble with asthma the summer and is not wheezing at this time. No change her therapy as needed. 5 . V itamin D deficiency, unspecified - E55.9 N otes :She has continued on vitamin D. Her vitamin D level was 92. She admitted to taking 3000 mg of vitamin D daily. Her calcium is normal. I have reduced her vitamin D intake to 2000 units. Plan: * Treatment: * Labs: * L ab: PROFILE, FASTING (COMPREHENSIVE METABOLIC) L ab: CBC WITH AUTO DIFF L ab: Lipid Panel L ab: URINE DIP STICK (Collection Date & Time - 09/08/2024) Value Reference Range S G 1.030 1.005 - 1.025 * p H 5.0 5.0 - 9.0 * L EU Negative Negative - * N IT Negative Negative - * P RO 15 Negative - Trace * G ALLEN Negative Negative - * K ET 5 Negative - * U BG 0.2 0.1 - 1.8 * B IL 1 0.2 - 1.3 * B LD Positive Negative - * M enstrating Yes * Procedure Codes: 8 1002 URINE-NO [id number] FLU IMM NO ORD/ADMIN DOC FEDERICO * Preventive Medicine: Counseling: C are goal follow-up plan: Counseling for abnormal BMI given Y es Below Normal BMI Follow-up D ietary education for weight gain * Follow Up: 1 Year, In a year or sooner if any concerns arise (Reason: OV, Annual Exam, Routine check-up) * Images: * Sign off status: Completed true * Provider: Jessy Cat MD Date: 11/08/2023 Generated for Printi ng/Fairag/eTransmitting on: 12/14/2024 05:22 PM EST History and Physical Notes * HPI (History of Present Illness) Category Sub-Category Detail Notes Depression Screening PHQ-9 Little inte rest or pleasure in doing things: Not at all Feeling down, depressed, or hopeless: No t at all Trouble falling or staying asleep, or sl eeping too much: Several days Feeling tired or having little energy: N ot at all Poor appetite or overeating: Not at all Feeling bad about yourself o r that you are a failure, or have let yourself or your family down: Not at all Trouble concentrating on thi ngs, such as reading the newspaper or watching television: Not at all Moving or speaking so slowly that other people could have noticed; or the opposite, being so fidgety or restless that you have been moving around a lot more than usual: Not at all Thoughts that you would be b johan off or of hurting yourself in some way: Not at all Total Score: 1 Interpretation: Minimal Depression COVID-19 Screening Questions Have you had any new onset fever, chills, cough, congestion, sore throat, shortness of breath, muscle aches?: No Have you been exposed to the virus withi n the last 10 days?: No Have you travelled internationally in last 10 days?: No Have you been exposed to COVID-19 in the past?: Yes SDOH Questions SDOH Questions In the past year have you been worried about losing your housing?: No In the past year have you or any family members you live with been unable to get any of the following when it was really needed? Check all that apply:: None Examination Category Sub-Category Detail Notes General Examination GENERAL APPEARANCE: pleasant , well nourished, well developed, in no acute distress, calm and relaxed, underweight, woman HEAD: atraumatic, normocep halic EYES: eomi, perrla, anicte anushka, conjugate EARS: normal NOSE: septum intact NECK/THYROID: no jugular venous di stention, no carotid bruit, thyroid normal HEART: no clicks, gallops, murmurs, or rubs, regular rhythm, S1, S2 normal, no s3, or vascular bruits LUNGS: clear to auscultatio n ABDOMEN: bowel sounds normal, no ascites, no organomegaly, no mass NEUROLOGIC: alert and oriented, cranial nerves 2-12 grossly intact, deep tendon reflexes 2+ symmetrical, motor strength normal upper and lower extremities, sensory exam intact SKIN: no suspicious lesion s, anicteric PERIPHERAL PULSES: normal BREASTS: no masses palpable b ilaterally, no discharge, no dimpling, nontender, symmetrical MUSCULOSKELETAL: extremities unremark able, no clubbing, cyanosis or edema LYMPH NODES: no enlarged lymph no chester,spleen normal RECTAL EXAM: not examined PSYCH: alert, oriented, tho ught process logical, goal directed, speech clear, mood/affect full range, judgement and insight good, good eye contact, cognitive function intact ORAL CAVITY: normal, unremarkable
--- OUTSIDE RECORDS SUMMARY | 2025-09-09 04:30 | XMS_ITS ---
Author Organization Reuben Cat III, MD Address [address] [place] [address] [address] [place] [address] Care Team Providers Care Warehouse Attendant Name Role Phone Dr. Reuben Cat III Primary Care Provider [phone] Allergies Allergen (clinical drug ingredient) Drug/Non Drug Allergy documented on EMR Reaction Allergy Type Onset Date Status Penicillin Unknown Drug Allergy Active Cat dander Cat Dander Unknown Allergy Active vancomycin Vancomycin HCl Unknown Drug Allergy A ctive Seasonale Unknown Drug Allergy Active erythromycin Erythromycin Unknown Drug Allergy A ctive amoxicillin Amoxicillin Unknown Drug Allergy Act [place] sulfacetamide Sulfacetamide Unknown Drug Allergy Active Reason For Referral Reason evaluate and treatme nt yearly pelvic and pap smear Diagnosis 1 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, [employer] Referred Address [address] [place] [phone], Referred Provider Specialty OB - Gynecol ogy General Notes Sanjuana Myles CMA 09/09 02:22:44 PM >ref/demo/progress note /xrays faxed to dr Borja office pt had been seen there several years ago so she is considered new pt again, Jayshree Peerz 10/01/2025 09:16:14 AM > patient stated that she is not going to see Dr Borja. Stated that she called and spoke to the office, waited on hold for 10 minutes for office to find the referral and then was asked to be placed on hold again to see if the patient can be scheduled. Patient was not pleased with the way that office ran and stated If Dr. Cat wants me to be seen by an OBGYN then he needs to find me another office. A referral will be sent to [facility]. Spoke with [facility] stated they are putting new patients on a waitlist till the end of September and then at that point the patient will be offered the next annual exam slot Referral faxed Referral Priority Routine REASON FOR VISIT Annual exam Medications Medication SIG (Take, Route, Frequency, Duration) Notes Start Date End Date Status Albuterol Sulfate HFA 108 (90 Base) MCG/ACT 1 puff Inhalation every 4 hrs as needed for wheezing for 28 days 09/09/2025 Active Calcium Active Clobetasol Propionate 0.05 % 1 application Externally Twice a day 02/17/2022 Active Vitamin D Active Acidophilus Active Beet Root Active Social History Tobacco Use: Social History Observation Description Date Details (start date - stop date) Never Smoker NA - NA Sex Assigned At : Social History Observation Description Sex Assigned At Female Tobacco Control (Standard) Question Answer Notes Tobacco use: Nonsmoker Additional Findings: Tobacco non-user Aggressive nonsmoker AUDIT-C (Standard) Question Answer Notes Did you have a drink containing alcohol in the p ast year? No Points 0 Interpretation Negative Vital Signs Temperature 97.0 degrees Fahrenheit 09/09/20 25 Blood pressure systolic 114 mm Hg 09/09/20 25 Blood pressure diastolic 70 mm Hg 025 Heart Rate 62 /min 09/09/2025 Height 67.5 in 09/09/2025 Weight 122 lbs 09/09/2025 BMI 18.82 kg/m2 09/09/2025 Encounters Encounter Location Date Provider Diagnosis Reuben Cat III, MD [address] [place] [address] [address], [place] [address] 09/09/2025 Reuben Cat Lumbar radiculopathy M54.16 ; High risk HPV infection A63.0 ; Underweight R63.6 ; Colitis K52.9 ; Asthma J45.909 and Vitamin D deficiency, unspecified E55.9 Assessments Encounter Date Diagnosis (ICD Code) Assessment Notes Treat ment Notes Treatment Clinical Notes 09/09/2025 Lumbar radiculopathy (ICD-10 - M54.16) Her back pain has been minimal lately. 09/09/2025 High risk HPV infection (ICD-10 - A63.0) We have referred her back to [facility] to resume having routine visits. 09/09/2025 Underweight (ICD-10 - R63.6) Her body mass index is 18. Her weight is stable and her nutritional status is good. She seems healthy and well. 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 09/09/2025 Asthma (ICD-10 - J45.909) She has had very little trouble with asthma the summer and is not wheezing at this time. No change her therapy as needed. 09/09/2025 Vitamin D deficiency, unspecified (ICD-10 - E55.9) She has continued on vitamin D. Her vitamin D level was 92. She admitted to taking 3000 mg of vitamin D daily. Her calcium is normal. I have reduced her vitamin D intake to 2000 units. Plan Of Treatment Medication Medication Name Sig Start Date Stop Date Notes ProAir HFA 108 (90 Base) MCG/ACT 2 puffs as needed Inhalation every 4 hrs prn wheezing 06/18/2020 Albuterol Sulfate HFA 108 (9 0 Base) MCG/ACT 1 puff Inhalation every 4 hrs as needed for wheezing for 28 days 09/09/2025 Calcium Clobetasol Propionate 0.05 % 1 applicati on Externally Twice a day 02/17/2022 Vitamin D Acidophilus Beet Root Pending Test Test Name Order Date PROFILE, FASTING (COMPREHENSIVE METABOLI C) 09/09/2025 CBC w DIFF 09/09/2025 Lipid Panel 09/09/2025 Referrals Referral Date Details 09/09/2025 09/09/2025, evaluate and treatment yearly pelvic and pap smear, [employer] [facility] [facility], [address] [facility], [place], [place], [phone], Next Appt Details Follow Up: 1 Year, Reason: a nnual exam review labs Provider Name:Reuben Cat , 10/19/2025 02:45:00 PM, [address] [place] [address] DR, [place] [address], [place], [phone], Provider Name:Reuben Cat , 09/10/2026 09:30:00 AM, [address] [place] [address] [address], [place], [phone], Progress Notes * Anjelica GUAMANDOB:1970 (55 yo F)Acc No.[id number]:09/09/2025 Progress Notes Patient: Anjelica JEAN BAPTISTE Provider: Jessy Cat MD :1970 A ge:55 Y S ex:Female Date:09/09/2025 Address:[address] [place], [place] [id number] Subjective: * Chief Complaints: * A nnual exam * HPI: D epression Screening: r shoulder pain working in yard 2 weeks ago, don overdue, colono was 2022, normal b reast exam? wbc 3.2. She returns to the office at the age of 55 for her annual visit. Since her last visit she has been well. Her last colonoscopy was in 2022 and she is due for her next in 8 years. She is up-to-date with mammography. She is overdue for her [facility] visit and this was scheduled today. She has developed pain in her right shoulder over the last 2 weeks after vigorously working in her yard. On examination the range of motion was normal and painless except with elevation. She declined an orthopedic referral saying they would only send her to physical therapy. She says she knows those exercises. She is going to call me if she is not improved in 3 weeks. No new problems were found on her examination today. PHQ-9 L ittle interest or pleasure in doing things?Not at all F eeling down, depressed, or hopeless N ot at all T rouble falling or staying asleep, or sleeping too much N ot at all F eeling tired or having little energy [...] N ot at all T otal Score 0 Interpretation and Intervention D epression Screening Findings N egative C OVID-19 Screening: Questions H ave you had any new onset fever, chills, cough, congestion, sore throat, shortness of breath, muscle aches? N o S JUANY Questions: SDOH Questions I n the past year have you been worried about losing your housing? N o I n the past year have you or any family members you live with been unable to get any of the following when it was really needed? Check all that apply: N one * ROS: G eneral/Constitutional: pain R ight shoulder with elevation. C hills d enies. F atigue a dmits. F ever d enies. E NT: Decreased hearing d enies. R espiratory: Cough d enies. C ardiovascular: Chest pain with exertion d enies. D yspnea on exertion?denies. S hortness of breath d enies. G astrointestinal: Constipation d enies. D ecreased appetite d enies.?Diarrhea d enies. H eartburn d enies. N ausea d enies. R ectal bleeding?denies. V omiting d enies. H ematology: bruising [...] enies.?Headache d enies. L ow back pain t hat is chronic. P sychiatric: Depressed mood d enies. * Medical History: * Surgical History: T &A childhood fracture right humerus, childhood fracture toe, childhood [id number] repair laceration right wrist, Dr. Bojorquez, orthopedist 06/2014colonoscopy 2008No history * Hospitalization/Major Diagno stic Procedure: N [...] Social History: T obacco Use: T obacco Control (Standard) T obacco use: N onsmoker A dditional Findings: Tobacco non-user A ggressive nonsmoker D rugs/Alcohol: D rugs H ave you used drugs other than those for medical reasons in the past 12 months? N o D rug/Alcohol: A MARIS-C (Standard) D id you have a drink containing alcohol in the past year? N o P oints 0 I nterpretation N egative S he was born in [facility]. She has 2 children and was remarried to [place] in February 2016.. 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 She does not smoke or drink and has not traveled outside of the country since 2008 when she was in [place]. Not mentioned in the transcript. * Medications: T akingBeet Root Acidophilus Calcium Vitamin D ProAir HFA 108 (90 Base) MCG/ACT Aerosol Solution 2 puffs as needed Inhalation every 4 hrs prn wheezing Clobetasol Propionate 0.05 % Cream 1 application Externally Twice a day Medication List reviewed and reconciled with the patientTaking Beet Root Taking Acidophilus Taking Calcium Taking Vitamin D Taking ProAir HFA 108 (90 Base) MCG/ACT Aerosol Solution 2 puffs as needed Inhalation every 4 hrs prn wheezing Taking Clobetasol Propionate 0.05 % Cream 1 application Externally Twice a day Medication List reviewed and reconciled with the patient * Allergies: A moxicillinVancomycin HClErythromycinSulfacetamideSeasonalePenicillinCat Danderno[Allergies Verified] Objective: * Vitals: H t: 67.5, Wt: 122, BMI:18.82, BP: 114/70, HR: 62, Temp: 97.0, Wt-k.34. * P ast Orders: Lab:Complete Blood Count Aut o Diff * Collection Date 09/03/2025 08/27/2024 08/22/2023 Collection Time 08:04 AM 07:44 AM 08:15 AM Order Date 09/03/2025 08/27/2024 08/22/2023 White Blood Count 3.2 L (Ref Range: 4.8-10.8 X10*3/uL) 4.4 L (Ref Range: 4.8-10.8 X10*3/uL) 3.7 L (Ref Range: 4.8-10.8 X10*3/uL) Red Blood Count 4.48 (Ref Range: 4.20-5.50 X10*6/uL) 4.63 (Ref Range: 4.20-5.50 X10*6/uL) 4.47 (Ref Range: 4.20-5.50 X10*6/uL) Hemoglobin 14.1 (Ref Range: 12.0-16.0 g/dl) 14.3 (Ref Range: 12.0-16.0 g/dl) 13.8 (Ref Range: 12.0-16.0 g/dl) Hematocrit 42.1 (Ref Range: 37.0-47.0 %) 42.8 (Ref Range: 37.0-47.0 %) 41.7 (Ref Range: 37.0-47.0 %) Mean Corpuscular Volume 94.0 (Ref Range: 80.0-98.0 fL) 92.4 (Ref Range: 80.0-98.0 fL) 93.3 (Ref Range: 80.0-98.0 fL) Mean Corpuscular Hemoglobin 31.5 (Ref Range: 27.0-33.0 pg) 30.9 (Ref Range: 27.0-33.0 pg) 30.9 (Ref Range: 27.0-33.0 pg) Mean Corpuscular HGB Conc 33.5 (Ref Range: 31.0-35.0 g/dl) 33.4 (Ref Range: 31.0-35.0 g/dl) 33.1 (Ref Range: 31.0-35.0 g/dl) Red Cell Distribution Width 11.9 (Ref Range: 11.0-16.0 %) 11.9 (Ref Range: 11.0-16.0 %) 12.0 (Ref Range: 11.0-16.0 %) Platelet Count 226 (Ref Range: 160-400 X10*3/uL) 248 (Ref Range: 160-400 X10*3/uL) 236 (Ref Range: 160-400 X10*3/uL) Mean Platelet Volume 9.8 (Ref Range: 9.4-12.3 fL) 9.8 (Ref Range: 9.4-12.3 fL) 10.2 (Ref Range: 9.4-12.3 fL) Neutrophils Percent Auto 48.2 (Ref Range: 45-73 %) 61.3 (Ref Range: 45-73 %) 61.1 (Ref Range: 45-73 %) Imm Gran Pct Auto 0.3 (Ref Range: 0.0-0.4 %) 0.2 (Ref Range: 0.0-0.4 %) 0.3 (Ref Range: 0.0-0.4 %) Lymphocytes Percent Auto 37.0 (Ref Range: 20-40 %) 25.2 (Ref Range: 20-40 %) 25.6 (Ref Range: 20-40 %) Monocytes Percent Auto 11.4 H (Ref Range: 2-11 %) 11.2 H (Ref Range: 2-11 %) 10.6 (Ref Range: 2-11 %) Eosinophils Percent Auto 2.5 (Ref Range: 0-4 %) 1.6 (Ref Range: 0-4 %) 1.9 (Ref Range: 0-4 %) Basophils Percent Auto 0.6 (Ref Range: 0-2 %) 0.5 (Ref Range: 0-2 %) 0.5 (Ref Range: 0-2 %) NRBC Pct Auto 0.0 (Ref Range: 0.0-0.2 /100WBC) 0.0 (Ref Range: 0.0-0.2 /100WBC) 0.0 (Ref Range: 0.0-0.2 /100WBC) Neutrophils Absolute Auto 1.5 L (Ref Range: 2.0-8.3 x10*3/uL) 2.7 (Ref Range: 2.0-8.3 x10*3/uL) 2.2 (Ref Range: 2.0-8.3 x10*3/uL) Imm Gran Abs Auto 0.01 (Ref Range: 0.00-0.03 X10*3/uL) 0.01 (Ref Range: 0.00-0.03 X10*3/uL) 0.01 (Ref Range: 0.00-0.03 X10*3/uL) Lymphocytes Absolute Auto 1.2 (Ref Range: 1.2-4.9 X10*3/uL) 1.1 L (Ref Range: 1.2-4.9 X10*3/uL) 0.9 L (Ref Range: 1.2-4.9 X10*3/uL) Monocytes Absolute Auto 0.4 (Ref Range: 0.1-1.2 X10*3/uL) 0.5 (Ref Range: 0.1-1.2 X10*3/uL) 0.4 (Ref Range: 0.1-1.2 X10*3/uL) Eosinophils Absolute Auto 0.1 (Ref Range: 0.0-0.4 X10*3/uL) 0.1 (Ref Range: 0.0-0.4 X10*3/uL) 0.1 (Ref Range: 0.0-0.4 X10*3/uL) Basophils Absolute Auto 0.0 (Ref Range: 0.0-0.2 X10*3/uL) 0.0 (Ref Range: 0.0-0.2 X10*3/uL) 0.0 (Ref Range: 0.0-0.2 X10*3/uL) NRBC Abs Auto 0.000 (Ref Range: 0.0-0.012 X10*3/uL) 0.000 (Ref Range: 0.0-0.012 X10*3/uL) 0.000 (Ref Range: 0.0-0.012 X10*3/uL) * Lab:[facility]. Maria Dolores l Fast * Collection Date 09/03/2025 08/27/2024 08/22/2023 Collection Time 08:04 AM 07:44 AM 08:15 AM Order Date 09/03/2025 08/27/2024 08/22/2023 Sodium 142 (Ref Range: 135-145 mmol/L) 141 (Ref Range: 135-145 mmol/L) 140 (Ref Range: 135-145 mmol/L) Bilirubin Total 0.7 (Ref Range: 0.0-1.0 mg/dL) 0.5 (Ref Range: 0.0-1.0 mg/dL) 0.5 (Ref Range: 0.0-1.0 mg/dL) Aspartate Amino Transferase 22 (Ref Range: 5-31 U/L) 23 (Ref Range: 5-31 U/L) 17 (Ref Range: 5-31 U/L) Alanine Aminotransferase 18 (Ref Range: 0-31 U/L) 23 (Ref Range: 0-31 U/L) 12 (Ref Range: 0-31 U/L) Total Protein 6.9 (Ref Range: 6.5-8.0 g/dL) 6.9 (Ref Range: 6.5-8.0 g/dL) 6.7 (Ref Range: 6.5-8.0 g/dL) Albumin Level 4.5 (Ref Range: 3.5-5.0 g/dL) 4.2 (Ref Range: 3.5-5.0 g/dL) 4.1 (Ref Range: 3.5-5.0 g/dL) Alkaline Phosphatase 60 (Ref Range: 39-117 U/L) 63 (Ref Range: 39-117 U/L) 50 (Ref Range: 39-117 U/L) Potassium 3.7 (Ref Range: 3.3-5.1 mmol/L) 4.0 (Ref Range: 3.3-5.1 mmol/L) 4.0 (Ref Range: 3.3-5.1 mmol/L) Chloride 107 (Ref Range: 96-108 mmol/L) 107 (Ref Range: 96-108 mmol/L) 107 (Ref Range: 96-108 mmol/L) Carbon Dioxide 29 (Ref Range: 22-29 mmol/L) 25 (Ref Range: 22-29 mmol/L) 27 (Ref Range: 22-29 mmol/L) Anion Gap 10 L (Ref Range: 12-20) 13 (Ref Range: 12-20) 10 L (Ref Range: 12-20) Blood Urea Nitrogen 13 (Ref Range: 9-16 mg/dL) 14 (Ref Range: 9-16 mg/dL) 12 (Ref Range: 9-16 mg/dL) Creatinine 0.72 (Ref Range: 0.5-1.4 mg/dL) 0.76 (Ref Range: 0.5-1.4 mg/dL) 0.75 (Ref Range: 0.5-1.4 mg/dL) Estimated Glomerular Filt Rate > 60 > 60 > 60 Glucose Fasting 84 (Ref Range: 60-99 mg/dL) 94 (Ref Range: 60-99 mg/dL) 89 (Ref Range: 60-99 mg/dL) Calcium 8.6 (Ref Range: 8.4-10.2 mg/dL) 9.0 (Ref Range: 8.4-10.2 mg/dL) 9.0 (Ref Range: 8.4-10.2 mg/dL) * Lab:Lipid Panel * Collection Date 09/03/2025 08/27/2024 08/22/2023 Collection Time 08:04 AM 07:44 AM 08:15 AM Order Date 09/03/2025 08/27/2024 08/22/2023 Triglycerides 44 (Ref Range: <150 mg/dL) 49 (Ref Range: <150 mg/dL) 32 (Ref Range: <150 mg/dL) Cholesterol 172 (Ref Range: <200 mg/dL) 178 (Ref Range: <200 mg/dL) 156 (Ref Range: <200 mg/dL) LDL Cholesterol Calculated 94 (Ref Range: <100 mg/dL) 95 (Ref Range: <100 mg/dL) 81 (Ref Range: <100 mg/dL) HDL Cholesterol 70 (Ref Range: >40 mg/dL) 74 (Ref Range: >40 mg/dL) 69 (Ref Range: >40 mg/dL) * Imaging:MAMMOGRAM DIGITAL BI LATERAL SCREEN * Performed Date 07/22/2025 07/21/2024 Order Date 07/22/2025 07/21/2024 05/08/2016 Result: undefined undefined * Examination: G eneral Examination: GENERAL APPEARANCE: p leasant, well nourished, well developed, in no acute distress, calm and relaxed: underweight: woman. HEAD: a traumatic, normocephalic. EYES: e [...] auscultation . BREASTS: n o masses palpable bilaterally: no dimpling: no discharge: no drainage: nontender: symmetrical. ABDOMEN: b owel sounds normal, no ascites, no organomegaly, no mass. RECTAL EXAM: n ot examined. MUSCULOSKELETAL: P ain to elevation of right shoulder above the horizon. PERIPHERAL PULSES: n ormal. NEUROLOGIC: a lert and oriented, cranial nerves 2-12 grossly intact, deep tendon reflexes 2+ symmetrical, motor strength normal upper and lower extremities, sensory exam intact. PSYCH: a lert, oriented: cooperative with exam: cognitive function intact: speech clear: thought process logical, goal directed. Assessment: * Assessment: 1. H igh risk HPV infection - A63.0 (Primary) N otes :We have referred her back to [facility] to resume having routine visits. 2 . L umbar radiculopathy - M54.16 N otes :Her back pain has been minimal lately. 3 . U nderweight - R63.6 N otes :Her body mass index is 18. Her weight is stable and her nutritional status is good. She seems healthy and well. 4 . 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 5 . A sthma - J45.909 N otes :She has had very little trouble with asthma the summer and is not wheezing at this time. No change her therapy as needed. 6 . V itamin D deficiency, unspecified - E55.9 N otes :She has continued on vitamin D. Her vitamin D level was 92. She admitted to taking 3000 mg of vitamin D daily. Her calcium is normal. I have reduced her vitamin D intake to 2000 units. Plan: * Treatment: 2. L umbar radiculopathy Continue Beet Root; C ontinue Acidophilus; C ontinue Calcium; C ontinue Vitamin D; C ontinue Clobetasol Propionate Cream, 0.05 %, 1 application, Externally, Twice a day; S tart Albuterol Sulfate HFA Aerosol Solution, 108 (90 Base) MCG/ACT, 1 puff, Inhalation, every 4 hrs as needed for wheezing, 28 days, 1 Inhaler, Refills 11; S top ProAir HFA Aerosol Solution, 108 (90 Base) MCG/ACT, 2 puffs as needed, Inhalation, every 4 hrs prn wheezing. L AB: PROFILE, FASTING (COMPREHENSIVE METABOLIC) L AB: CBC w DIFF L AB: Lipid Panel * Procedure Codes: * Preventive Medicine: Counseling: C are goal follow-up plan: Counseling for abnormal BMI given Y es Below Normal BMI Follow-up D ietary education for weight gain * Follow Up: 1 Year (Reason: annual exam review labs) * Images: * Sign off status: Completed true * Provider: Jessy Cat MD Date: 11/09/2024 Generated for Johnny leone/Dustin/Tommyitting on: 12/14/2024 05:22 PM EST History and Physical Notes * HPI (History of Present Illness) Category Sub-Category Detail Notes Depression Screening PHQ-9 Little inte rest or pleasure in doing things: Not at all Feeling down, depressed, or hopeless: No t at all Trouble falling or staying asleep, or sl eeping too much: Not at all Feeling tired or having little energy: N [...] some way: Not at all Total Score: 0 Interpretation and Intervention Depression Gokul lira Findings: Negative COVID-19 Screening Questions Have you had any new onset fever, chills, cough, congestion, sore throat, shortness of breath, muscle aches?: No SDOH Questions SDOH Questions In the past [...] developed, in no acute distress, calm and relaxed: underweight: woman HEAD: atraumatic, normocep halic EYES: eomi, [...] PULSES: normal BREASTS: no masses palpable b ilaterally: no dimpling: no discharge: no drainage: nontender: symmetrical MUSCULOSKELETAL: Pain to elevation of right shoulder above the horizon LYMPH NODES: no enlarged lymph no chester,spleen normal RECTAL EXAM: not examined PSYCH: alert, oriented: pricing coordinator perative with exam: cognitive function intact: speech clear: thought process logical, goal directed ORAL CAVITY: normal, unremarkable Consultation Request Notes Referral Date Referring Provider Referred Provider Not es 09/09/2025 Reuben Cat [facility] [employer] evaluate and treatment yearly pelvic and pap smear
--- OUTSIDE RECORDS SUMMARY | 2025-10-13 10:00 | XMS_ITS ---
Author Organization Reuben Cat III, MD Address [address] [place] [address] [address] [place] [address] Care Team Providers Care Automotive Parts Salesperson Name Role Phone Dr. Reuben Cat III [...] Reference Range Notes URINE DIP STICK Reviewed date:10/13/2025 03:16:39 PM Interpretation: Performing Lab: Notes/Report: SG 1.020 1.005 - 1.025 pH 5.0 5.0 - 9.0 SARAH 70 + Negative - NIT Negative Negative - PRO 15 Negative - Trace GLU Negative Negative - KET 5 Negative - UBG 0.2 0.1 - 1.8 SHARAD 1 0.2 - 1.3 BLD Negative Negative - Menstrating No REASON FOR VISIT UTI x 3 days, Mid back pain, Hedrick when urinating Medications Medication SIG (Take, Route, Frequency, Duration) Notes Start Date End Date Status Ciprofloxacin HCl 500 MG 1 tablet Orally every 12 hrs for 7 days 10/13/2025 10/20/2025 Active Beet Root Active Calcium Active Acidophilus Active Vitamin D Active Clobetasol Propionate 0.05 % 1 application Externally Twice a day 02/17/2022 Active Social History Tobacco Use: Social History Observation Description Date Details (start date - stop date) Never Smoker NA - NA Sex Assigned At : Social History Observation Description Sex Assigned At Female Tobacco Control (Standard) Question Answer Notes Tobacco use: Nonsmoker Additional Findings: Tobacco non-user Aggressive nonsmoker Vital Signs Temperature 97.7 degrees Fahrenheit 10/13/20 25 Blood pressure systolic 123 mm Hg 10/13/20 25 Blood pressure diastolic 80 mm Hg 025 Heart Rate 65 /min 10/13/2025 Height 67.5 in 10/13/2025 Weight 124 lbs 10/13/2025 BMI 19.13 kg/m2 10/13/2025 Encounters Encounter Location Date Provider Diagnosis Reuben Cat III, MD [address] [place] [address] [place] [address] 10/13/2025 Reuben Cat Lumbar radiculopathy M54.16 and Hematuria R31.9 Assessments Encounter Date Diagnosis (ICD Code) Assessment Notes Treat ment Notes Treatment Clinical Notes 10/13/2025 Lumbar radiculopathy (ICD-10 - M54.16) Her back pain has been minimal lately. 10/13/2025 Hematuria (ICD-10 - R31.9) Plan Of Treatment Medication Medication Name Sig Start Date Stop Date Notes Ciprofloxacin HCl 500 MG 1 tablet Orally every 12 hrs for 7 days 10/13/2025 10/20/2025 Beet Root Calcium Acidophilus Vitamin D Clobetasol Propionate 0.05 % 1 applicati on Externally Twice a day 02/17/2022 Pending Test Test Name Order Date Urine Culture 10/13/2025 Next Appt Details Follow Up: As Scheduled, Fidelia son: OV Provider Name:Reuben Cat , 10/19/2025 02:45:00 PM, [address] [facility] [address], [place], [address], Provider Name:Reuben Cat , 09/10/2026 09:30:00 AM, [address] [facility] [place], [address], Progress Notes * Anjelica HOBBSDOB:1970 (55 yo F)Acc No.[id number]:10/13/2025 Patient: Anjelica JEAN BAPTISTE Provider: Jessy Cat MD :1970 A ge:55 Y S ex:Female Date:10/13/2025 Address:[address] [place], [place] [id number] Subjective: * Chief Complaints: * 1 . UTI x 3 days. 2. Mid back pain. 3. Hedrick when urinating. * HPI: C OVID-19 Screenin/14 blood in urine went to [facility] saw nurse, determined uti and macrobid and yridium, ended 10/08 felt better, yesterday urgencyi to pee and back pain,. today dysurila. Questions H ave you had any new onset fever, chills, cough, congestion, sore throat, shortness of breath, muscle aches? N o * ROS: G eneral/Constitutional: pain o nly normal aches and pains. C hills d enies.?Fatigue a dmits. F ever d enies. E [...] Depressed mood d enies. * Medical History: L aceration right wrist, Last mammogram 03/05/2014, Asthma onset age 35, colitis, 2007, Dr. Florez, [facility], colonoscopy, Tetanus 06/2014, high risk HPV, Degenerative disc disease lumbar spine, Lumbar radiculopathy, Not mentioned in the transcript. * Surgical History: T &A childhood , fracture right humerus, childhood , fracture toe, childhood , [id number] , repair laceration right wrist, Dr. Bojorquez, orthopedist 06/2014, colonoscopy 2007, No history . * Hospitalization/Major Diagno stic Procedure: N o history . * Family History: F ather: alive, emphysema, [...] dditional Findings: Tobacco non-user A ggressive nonsmoker S he was born in [facility]. She has 2 children and was remarried to [place] in February 2016.. 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 She does not smoke or drink and has not traveled outside of the country since 2008 when she was in [place]. Not mentioned in the transcript. * Medications: T aking Beet Root , Taking Acidophilus , Taking Calcium , Taking Vitamin D , Taking Clobetasol Propionate 0.05 % Cream 1 application Externally Twice a day , Medication List reviewed and reconciled with the patient * Allergies: A moxicillin, Vancomycin HCl, Erythromycin, Sulfacetamide, Seasonale, Penicillin, Cat Dander. Objective: * Vitals: H t: 67.5, Wt: 124, BMI:19.13, BP: 123/80, HR: 65, Temp: 97.7, Wt-k.25. * Examination: G eneral Examination: GENERAL APPEARANCE: p leasant, well nourished, well developed, in no acute distress, calm and relaxed. HEAD: a traumatic, normocephalic. EYES: e darci, [...] LUNGS: c lear to auscultation . BREASTS: no masses palpable bilaterally. ABDOMEN: b owel sounds normal, no ascites, no organomegaly, no mass. RECTAL EXAM: n ot examined. MUSCULOSKELETAL: e xtremities unremarkable, no clubbing, cyanosis or edema. PERIPHERAL PULSES: n ormal. NEUROLOGIC: a lert and oriented, cranial nerves 2-12 grossly intact, deep tendon reflexes 2+ symmetrical, motor strength normal upper and lower extremities, sensory exam intact. PSYCH: a lert, oriented. Assessment: * Assessment: 1. H ematuria - R31.9 (Primary) 2 . L umbar radiculopathy - M54.16 ? N otes :Her back pain has been minimal lately. Plan: * Treatment: Value Reference Range S G 1.020 1.005 - 1.025 * p H 5.0 5.0 - 9.0 * L EU 70 + Negative - * N IT Negative Negative - * P RO 15 Negative - Trace * G ALLEN Negative Negative - * K ET 5 Negative - * U BG 0.2 0.1 - 1.8 * B IL 1 0.2 - 1.3 * B LD Negative Negative - * M enstrating No 2.?Lumbar radiculopathy? Continue Beet Root;?Continue Acidophilus;?Continue Calcium;?Continue Vitamin D;? Continue Clobetasol Propionate Cream, 0.05 %, 1 application, Externally, Twice a day.?? * Procedure Codes: 8 1002 URINE-NO MICRO * Follow Up: A s Scheduled (Reason: OV) * Images: * The named appointment provid er may or may not be the originator of this progress note, and it is not deemed complete until electronically signed by the appointment provider. Sign off status: Pending * Provider: Jessy Cat MD Date: 12/14/2024 Generated for Johnny leone/Dustin/Tommyitting on: 12/14/2024 05:22 PM EST History and Physical Notes * HPI (History of Present Illness) Category Sub-Category Detail Notes COVID-19 Screening Questions Have you had any new onset fever, chills, cough, congestion, sore throat, shortness of breath, muscle aches?: No Examination Category Sub-Category Detail Notes General Examination GENERAL APPEARANCE: pleasant , well nourished, well developed, in no acute distress, calm and relaxed HEAD: atraumatic, normocep halic EYES: eomi, perrla, [...] PULSES: normal BREASTS: no masses palpable b ilaterally MUSCULOSKELETAL: extremities unremark able, no clubbing, cyanosis or edema LYMPH NODES: no enlarged lymph no chester,spleen normal RECTAL EXAM: not examined PSYCH: alert, oriented ORAL CAVITY: normal, unremarkable
--- OUTSIDE RECORDS SUMMARY | 2025-10-13 17:22 | XMS_ITS | Patient Health Record ---
Author Organization Reuben Cat III, MD Address [address] [place] [address] [address] [facility] [place] [address] Care Team Providers Care Pit Inspector Name Role Phone Dr. Reuben Cat III Primary Care Provider [phone] Allergies Allergen (clinical drug ingredient) Drug/Non Drug [...] 1.3 BLD Negative Negative - Menstrating No MAMMOGRAM DIGITAL BILATERAL SCREEN Reviewed date:09/09/2025 09:30:50 AM Interpretation:undefined Performing Lab: Notes/Report: undefined Complete Blood Count Auto Di ff Reviewed date:09/06/2025 06:54:24 PM Interpretation: Performing Lab:[facility], [address] [place] [id number] Notes/Report: White Blood Count 3.2 4.8-10.8 X10*3/uL Red Blood Count 4.48 4.20-5.50 X10*6/uL Hemoglobin 14.1 12.0-16.0 g/dl Hematocrit 42.1 37.0-47.0 % Mean Corpuscular Volume 94.0 80.0-98.0 fL Mean Corpuscular Hemoglobin 31.5 27.0-33.0 pg Mean Corpuscular HGB Conc 33.5 31.0-35.0 g/dl Red Cell Distribution Width 11.9 11.0-16.0 % Platelet Count 226 160-400 X10*3/uL Mean Platelet Volume 9.8 9.4-12.3 fL Neutrophils Percent Auto 48.2 45-73 % Imm Gran Pct Auto 0.3 0.0-0.4 % Lymphocytes Percent Auto 37.0 20-40 % Monocytes Percent Auto 11.4 2-11 % Eosinophils Percent Auto 2.5 0-4 % Basophils Percent Auto 0.6 0-2 % NRBC Pct Auto 0.0 0.0-0.2 /100WBC Neutrophils Absolute Auto 1.5 2.0-8.3 x10*3/u L Imm Gran Abs Auto 0.01 0.00-0.03 X10*3/uL Lymphocytes Absolute Auto 1.2 1.2-4.9 X10*3/u L Monocytes Absolute Auto 0.4 0.1-1.2 X10*3/uL Eosinophils Absolute Auto 0.1 0.0-0.4 X10*3/u L Basophils Absolute Auto 0.0 0.0-0.2 X10*3/uL NRBC Abs Auto 0.000 0.0-0.012 X10*3/uL Comprehensive Morris. Panel Fa st Reviewed date:09/06/2025 06:54:24 PM Interpretation: Performing Lab:[facility], [address] [place] [phone] Notes/Report: Sodium 142 135-145 mmol/L Potassium 3.7 3.3-5.1 mmol/L Chloride 107 96-108 mmol/L Carbon Dioxide 29 22-29 mmol/L Anion Gap 10 12-20 Blood Urea Nitrogen 13 9-16 mg/dL Creatinine 0.72 0.5-1.4 mg/dL Estimated Glomerular Filt Rate > 60 Chronic Kidney Disease: Estimated GFR < 60 mL/min/1.73m2 Severe Kidney Disease: Estimated GFR < 15 mL/min/1.73m2 Glucose Fasting 84 60-99 mg/dL Calcium 8.6 8.4-10.2 mg/dL Bilirubin Total 0.7 0.0-1.0 mg/dL Aspartate Amino Transferase 22 5-31 U/L Alanine Aminotransferase 18 0-31 U/L Total Protein 6.9 6.5-8.0 g/dL Albumin Level 4.5 3.5-5.0 g/dL Alkaline Phosphatase 60 39-117 U/L Lipid Panel Reviewed date:09/06/2025 06:54:24 PM Interpretation: Performing Lab:[facility], [address] [place] [phone] Notes/Report: Triglycerides 44 <150 mg/dL Desirable Triglyceride: less than 150 mg/dL Borderline High Triglyceride 150-199 mg/dL High Triglyceride: 200-499 mg/dL Very High Triglyceride: greater than or equal to 5OO mg/dL Cholesterol 172 <200 mg/dL Desirable Cholesterol: less than 200 mg/dL Borderline High Cholesterol: 200-239 mg/dL High Cholesterol: greater than 239 mg/dL LDL Cholesterol Calculated 94 <100 mg/dL Desirable LDL: less than 100 mg/dL Near Optimal/Above Optimal LDL: 110-129 mg/dL Borderline High LDL: 130-159 mg/dL High LDL: 160-189 mg/dL Very High LDL: greater than or equal to 190 mg/dL HDL Cholesterol 70 >40 mg/dL Desirable HDL: greater than 40 mg/dL Note: This HDL assay may give artificially low results in patients with liver disease. Reason For Referral Reason evaluate and treatme nt yearly pelvic and pap smear Diagnosis 1 High risk HPV infect ion (A63.0) Referral Organization Reuben Cat III, MD Referring Provider First Name Reuben Referring Provider Last Name Stephania Referring Provider Speciality Internal M edicine Referred Organization [facility] Referred Provider [facility], [facility] [employer]. Referred Address [address] [place] [id number], Referred Provider Specialty OB - Gynecol ogy General Notes Sanjuana Myles CMA 09/09 02:22:44 PM >ref/demo/progress note /xrays faxed to dr Borja office pt had been seen there several years ago so she is considered new pt again, Jayshree Perez 10/01/2025 09:16:14 AM > patient stated that [...] office. A referral will be sent to [facility] [employer]. Spoke with [facility] stated they are putting new patients on a waitlist till the end of September and then at that point the patient will be offered the next annual exam slot Referral faxed Referral Priority Routine Medications Medication SIG (Take, Route, Frequency, Duration) Notes Start Date End Date Status Clobetasol Propionate 0.05 % 1 application Externally Twice a day 02/17/2022 Active Ciprofloxacin HCl 500 MG 1 tablet Orally every 12 hrs for 7 days 10/13/2025 10/20/2025 Active Beet Root Active Calcium Active Acidophilus Active Vitamin D Active Immunizations Vaccine Route Administration Date Status [...] Problem Status W/U Status Risk Notes Problem 209205613 Asthma (J45.909) Active confirmed She has had very little trouble with asthma the summer and is not wheezing at this time. No change her therapy as needed. Problem 947735985 Underweight (R63.6) Active confirmed Her body mass index is 18. Her weight is stable and her nutritional status is good. She seems healthy and well. Problem 410939772 Lumbar radiculopathy (M54.16) Active confirmed Her back pain has been minimal lately. 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 Her vitamin D level was 92. She admitted to taking 3000 mg of vitamin D daily. Her calcium is normal. I have reduced her vitamin D intake to 2000 units. Problem Intervertebral disc disorder (50233228) Unspecified thoracic, thoracolumbar and lumbosacral intervertebral disc disorder (M51.9) Active confirmed She continues to have mild back pain from last month. Problem 58402710 Penicillin allergy (Z88.0) Active confirmed Problem 988708001 Environmental allergies (Z91.09) Active confirmed She has had no allergies. Yet, and we are in pollen season. We reviewed her strategies for controlling allergies to environmental stimuli. Problem 687373040 Colitis (K52.9) Active confirmed Her colitis has been in remission for a prolonged period of time. 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 Problem 691119800 Acute right-sided low back pain with right-sided sciatica (M54.41) Active confirmed Her back pain has resolved. She has intermittent twinges and is conscientious about avoiding heavy lifting and undue exercise. Problem 113450517 Abnormal mammogram of left breast (R92.8) Active confirmed She is going to try to find the details of her family's breast cancer cases particularly the age of onset and the location of the pathology reports. I will order an MRI of the breast and we will discuss these results. If she qualifies for genetic testing it will be ordered. Vital Signs Heart Rate 65 /min 10/13/2025 Temperature 97.7 degrees Fahrenheit 10/13/2025 Blood pressure diastolic 80 mm Hg 10/13/2025 Height 67.5 in 10/13/2025 Blood pressure systolic 123 mm Hg 10/13/2025 Weight 124 lbs 10/13/2025 BMI 19.13 kg/m2 10/13/2025 Encounters Encounter Location Date Provider Diagnosis Reuben Cat III, MD [address] [place] [address] [address], [place] [address] 10/13/2025 Reuben Cat Lumbar radiculopathy M54.16 and Hematuria R31.9 Reuben Cat III, MD [address] [place] [address] [address] [place], [place] [address] 09/09/2025 Reuben Cat Lumbar radiculopathy M54.16 ; High risk HPV infection A63.0 ; Underweight R63.6 ; Colitis K52.9 ; Asthma J45.909 and Vitamin D deficiency, unspecified E55.9 Assessments Encounter Date Diagnosis (ICD Code) Assessment Notes Treat ment Notes Treatment Clinical Notes 10/13/2025 Lumbar radiculopathy (ICD-10 - M54.16) Her back pain has been minimal lately. 09/09/2025 Lumbar radiculopathy (ICD-10 - M54.16) Her back pain has been minimal lately. 09/09/2025 High risk HPV infection (ICD-10 - A63.0) We have referred her back to [facility] to resume having routine visits. 10/13/2025 Hematuria (ICD-10 - R31.9) 09/09/2025 Underweight (ICD-10 - R63.6) Her body [...] Date PROFILE, FASTING (COMPREHENSIVE METABOLI C) 09/09/2025 PROFILE, FASTING (COMPREHENSIVE METABOLI C) 12/17/2019 LIPID PANEL 12/17/2019 CBC w DIFF 09/09/2025 CBC w DIFF 12/17/2019 MRI BREAST BILATERAL 06/14/2017 MRI LUMBAR SPINE NO CONTRAST 03/14/2023 MAMMOGRAM DIGITAL BILATERAL DIAGNO 05/14 MAMMOGRAM DIGITAL BILATERAL SCREEN 04/07 MAMMOGRAM DIGITAL UNILATERAL JON LT 04/21 Lipid Panel 09/09/2025 Urine Culture 10/13/2025 Next Appt Details Provider Name:Reuben Cat , 10/19/2025 02:45:00 PM, [address] [place] [address] [address], [place], [address], Provider Name:Reuben Cat , 09/10/2026 09:30:00 AM, [address] [place] [address] [address], [place], [address], Insurance Providers Payer Name Payer Address Payer Phone Subscriber Number Group Number Insured Name Patient Relationship to Insured Coverage Start Date Coverage End Date [facility] [address] [place], [place] [id number] [phone] [id number] Anjelica Guaman Self - patient is the insured Medical (General) History Medical History History ICD Code laceration right wrist last mammogram 03/05/2014 asthma onset age 35 colitis, 2007, Dr. Florez, [facility], colonosc opy tetanus 06/2014 high risk HPV Degenerative disc disease lumbar spine Lumbar radiculopathy Not mentioned in the transcript Surgical History Surgery Date(Month/Year) No history colonoscopy 2007 repair laceration right wrist, Dr. Bojoqruez , orthopedist 06/2014 [id number] fracture toe, childhood fracture right humerus, childhood T&A childhood Hospitalization History Reason Date(Month/Year) No history
== END 2025-10-13 17:21 | disposition home or self-care (01) ==
LOC: HO.LNP 17:20
PROVIDERS: Visit Provider Internal Medicine Medical Oncology
DX: R31.9 Hematuria, unspecified (principal)
CPT/HCPCS: 87086